=== PATIENT | male | born 1960 | race Caucasian/White ===

== ENCOUNTER → 2021-05-14 08:45 | Outpatient (CLI) | payer OTHER, SELFPAY ==
--- NOTE | ~2021-05-14 | MR_ITS ---
EXAMINATION: MR lumbar spine wo con DATE: 05/14/2021 09:20 INDICATION: Lumbar radiculopathy. TECHNIQUE: Magnetic resonance imaging (MRI) of the lumbar spine was performed without intravenous con trast. Sequences included sagittal T2-weighted FSE, sagittal T2-weighted FS FSE, sagittal T1-weighted FSE, and axial T2-weighted FSE. COMPARISON: Lumbar spine MRI 06/09/2019 FINDINGS: There is 11 degrees dextroscoliosis of lumbar spine. Vertebral body heights are normal. The re is mildly decreased disc height at L4-L5. The distal spinal cord signal intensity is normal. The c onus medullaris is at L1. The following disc levels are specifically discussed: L1-L2: The disc is bulging. There is mild bilateral facet joint osteoarthritis. There is mild right n eural foraminal stenosis. There is mild central canal stenosis. L2-L3: The disc does not extend beyond the endplate margin. There is mild bilateral facet joint osteo arthritis. There is no neural foraminal stenosis. There is no central canal stenosis. L3-L4: The disc is mildly bulging. There is mild bilateral facet joint osteoarthritis. There is mild bilateral neural foraminal stenosis. There is no central canal stenosis. L4-L5: The disc is bulging and has an annular fissure. There is severe bilateral facet joint osteoart hritis. There is mild bilateral neural foraminal stenosis. There is mild central canal stenosis. L5-S1: The disc is bulging and has an annular fissure. There is severe bilateral facet joint osteoart hritis. There is mild bilateral neural foraminal stenosis. There is mild central canal stenosis. IMPRESSION: 1. Mild lumbar spondylosis, stable from 06/09/2019. Reviewed, dictated and finalized at location A.
== END ==
PROVIDERS: PCP Internal Medicine; Visit Provider Internal Medicine
DX: M54.16 Radiculopathy, lumbar region (principal); M47.816 Spondylosis without myelopathy or radiculopathy, lumbar region
CPT/HCPCS: 72148

== ENCOUNTER 2022-07-16 17:47 | Emergency (ER) | payer OTHER, SELFPAY ==
[2022-07-16] VITALS (20 sets, daily range): BP systolic 127–163; BP diastolic 68–97; PULSE 78–88; RESP 14–16; TEMP 36.9; O2SAT 94–99
--- NOTE | ~2022-07-16 | XR_ITS ---
EXAM: XR shoulder RT min 2V DATE: 07/16/2022 18:55 HISTORY: right shoulder pain, injury TODAY, PAIN WITH ROTATION . COMPARISON: CT chest abdomen and pelvis, same date. FINDINGS: Normal mineralization. Linear ossific fragment at the superior and posterior margin of the glenoid, likely osteophyte or old fused fracture fragment. No lytic or blastic lesion. Mild degenera tive changes in the AC joint and glenohumeral joint. No erosion or periosteal change. Soft tissues wi thin normal limits. IMPRESSION: No acute osseous finding in the right shoulder. Reviewed, dictated and finalized at location K. [employer]IVING [employer]NAGER
--- NOTE | ~2022-07-16 | CT_ITS ---
EXAMINATION: CT cervical spine wo con DATE: 07/16/2022 18:10 INDICATION: DOS fell on head today. Laceration to right frontal scalp. Headache. General neck pain. TECHNIQUE: Computed tomography (CT) of the cervical spine was performed without intravenous contrast. Automated exposure control and iterative reconstruction technique were employed. Exam dose: 404.24 mGy-cm total exam DLP. COMPARISON: None FINDINGS: C1 and C2 are normally aligned and the odontoid process is intact. There is minimal anterolisthesis at C5-6. Moderately severe degenerative disc disease C6-7. There is degenerative change at the apophyseal joints, most prominent on the right C4-5. IMPRESSION: Bilateral anterolisthesis at C5-6 Moderately severe degenerative disc disease at C6-7 No fracture or dislocation Reviewed, dictated and finalized at Location A. Reviewed, dictated and finalized at location A. 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
--- NOTE | ~2022-07-16 | CT_ITS ---
EXAMINATION: CT chst ab pel thor lum w DATE: 07/16/2022 19:15 INDICATION: trauma . TECHNIQUE: Computed tomography (CT) of the chest, abdomen, and pelvis was performed with 100 mL Omnip aque-350 intravenous contrast. Automated exposure control and iterative reconstruction technique were employed. The dose-length product was 891.61 mGy-cm. COMPARISON: CT abdomen pelvis 12/12/2016. MR lumbar spine 05/14/2021. FINDINGS: CHEST: No thoracic aortic injury. No mediastinal hematoma. No pericardial effusion. Coronary artery calcifications. No acute lung injury. Sub-4 mm peripheral nodular opacities, likely represent granulomas or lymph nod es. No pleural effusion or pneumothorax. ABDOMEN/PELVIS: No solid organ injury. No evidence of bowel or mesenteric injury. Diverticulosis without evidence of diverticulitis. No free fluid or free air. No retroperitoneal hematoma. Pelvic contents are atraumatic. MUSCULOSKELETAL: No acute fracture. No fracture or traumatic malalignment of the thoracic or lumbar spine. Old mild superior endplate def ormity at T3. Severe left L4-5 facet arthropathy. IMPRESSION: No acute process detected in the chest, abdomen, or pelvis. Reviewed, dictated and finalized at location K. D ASSOCIATE
--- NOTE | ~2022-07-16 | CT_ITS ---
EXAMINATION: CT brain wo con DATE: 07/16/2022 18:08 INDICATION: Head injury TECHNIQUE: Computed tomography (CT) of the head was performed without intravenous contrast. The mA wa s adjusted according to patient size. Iterative reconstruction technique was employed. Exam dose: 68 1.00 mGy-cm total exam DLP. COMPARISON: None FINDINGS: Bilateral carotid siphon internal carotid artery calcifications. Bilateral basal ganglia calcifications. No intracranial mass lesion or hemorrhage or cerebrovascular accident, midline shift or mass effect. No subdural or epidural hematoma. No orbital mass lesion. Prominent right and mild left ethmoid air cell opacification. Mild mucoperiosteal thickening of the m axillary sinuses and right frontal sinus. No skull fracture or bone destruction. IMPRESSION: No skull fracture or acute intracranial finding Reviewed, dictated and finalized at Location A. Reviewed, dictated and finalized at location A. 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
--- NOTE | 2022-07-16 18:38 | ED.HEATRA ---
HPI - Head Injury General Chief complaint: Head Injury Stated complaint: head injury with laceration Time Seen by Provider: 07/16/22 18:12 Source: patient Mode of arrival: ambulatory Limitations: no limitations History of Present Illness HPI Narrative: This is a 62 year old male that presents to the ER for head injury sustained just prior to arrival. Reports he was at work and had a life size dollhouse/playhouse fall from a fork lift and hit him and then fell to the floor and landed on top of him. Reports his coworkers were immediately able to lift it off of him. He sustained a laceration to the right side of his scalp. Reports headache and neck pain. He also reports right shoulder pain, chest pain and back pain. Denies loss of consciousness, vision changes, abdominal pain, vomiting, numbness or weakness. Related Data Home Medications Medication Instructions Recorded Confirmed cholecalciferol (vitamin D3) 25 25 mcg PO DAILY 07/25/20 07/14/22 mcg (1,000 unit) tablet Allergies Allergy/AdvReac Type Severity Reaction Status Date / Time No Known Allergies Allergy Unknown Verified 07/16/22 18:49 Review of Systems Review of Systems: CONSTITUTIONAL: Denies fever EYES: Denies visual changes CARDIOVASCULAR: Reports chest pain RESPIRATORY: Denies dyspnea. GASTROINTESTINAL: Denies abdominal pain, nausea, vomiting, or diarrhea. GENITOURINARY: Denies hematuria. SKIN: Denies rash MUSCULOSKELETAL: Reports back pain, joint pain, and myalgia. NEUROLOGIC: Reports headache. Denies numbness, or weakness. PSYCHIATRIC: Denies anxiety or depression. All systems reviewed & are unremarkable except as noted in HPI and below PMFSH Past Medical History Medical History Anxiety Biceps tendonitis on right Chronic low back pain Encounter for preventive health examination Encounter for routine adult health examination with abnormal findings Encounter for routine adult health examination without abnormal findings Hernia of abdominal wall Hip pain Hyperlipidemia Inguinal hernia Lumbar radiculopathy Plantar fasciitis, bilateral Prostate cancer screening Right shoulder pain Routine adult health maintenance Umbilical hernia Ventral hernia Surgical History Surgical History History of colonoscopy 2014 History of knee replacement 2011, left knee Family History Family History Father Malignant neoplasm of prostate Family history of coronary artery disease Grandparent Malignant neoplasm of prostate Social History Social History Social History: drinks coffee daily Smoking status: Never smoker Alcohol intake: current Alcohol use details: social-wine 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 HEAD: Normocephalic. 2.5 cm linear laceration into subcutaneous tissue to the right scalp EYES: PERRLA and EOMI. ENT: Nares clear, no rhinorrhea or epistaxis. Mucous membranes moist. Oropharynx without tonsillar hypertrophy exudate or other lesions. Bilateral TMs pearly [place] non-bulging NECK: Supple. No adenopathy or masses. C-collar in place CHEST: Clear to auscultation. No respiratory distress. No wheezes rales or rhonchi HEART: Regular rate and rhythm. No murmur heard. Normal peripheral pulses. ABDOMEN: Soft, nontender, nondistended, normal active bowel sounds. BACK: No midline thoracic or lumbar spine tenderness EXTREMITIES: Normal range of motion. No edema or obvious deformity. Strength equal in bilateral upper and lower extremities (5/5) SKIN: Warm, dry, no rash. NEURO: No focal deficits. Alert and oriented x3. Cranial nerves II through XII grossly intact PSYCH: Normal mood and affect Course Vital Sign
[2022-07-16 18:41] LABS: Basophils Absolute Auto 0.1 K/mm3 (0.0-0.1); Basophils Percent Auto 0.8 % (0.2-1.2); Eosinophils Absolute Auto 0.3 K/mm3 (0-0.3); Eosinophils Percent Auto 3.1 % (0-4.4); Hematocrit 43.3 % (42.0-52.0); Hemoglobin 14.8 g/dL (14.0-18.0); Immature Granulocyte Absolute 0.03 K/mm3 (0.00-0.031); Immature Granulocyte Percent A 0.4 % (0-0.5); Lymphocytes Absolute Auto 1.82 K/mm3 (0.9-3.2); Lymphocytes Percent Auto 21.5 % (18.3-44.2); Mean Corpuscular HGB Conc 34.2 g/dl (32-36); Mean Corpuscular Hemoglobin 31.6 pg (26-34); Mean Corpuscular Volume 92.5 fl (80-100); Mean Platelet Volume 9.8 fl (7.4-10.4); Monocytes Absolute Auto 0.7 K/mm3 (0.1-0.6); Monocytes Percent Auto 8.5 % (2.6-8.5); Neutrophils Absolute Auto 5.6 K/mm3 (1.3-6.7); Neutrophils Percent Auto 65.7 % (45.5-73.1); Platelet Count Result 267 k/mm3 (150-375); Red Blood Count 4.68 M/mm3 (4.6-6.20); Red Cell Distribution Width 12.7 % (11.5-14.5); White Blood Count 8.5 K/mm3 (4.5-10.0)
[2022-07-16] MEDS: TETANUS,DIPHTHERIA,AC PERTUSSIS ADULT (0.5 ML) BOOSTRIX IM (18:50)
[2022-07-16 18:52] LABS: Partial Thromboplastin Time 25.8 SECONDS (22.3-36.8)
[2022-07-16] MEDS: ONDANSETRON INJ 4 MG/2 ML VIAL IV PUSH (18:53)
[2022-07-16] MEDS: MORPHINE SULFATE (*CRX) 4 MG/ML INJ IV PUSH (18:53)
[2022-07-16 18:55] LABS: Alanine Aminotransferase 46 U/L (6-50); Albumin Level 4.8 g/dL (3.5-5.1); Alkaline Phosphatase 76 U/L (38-126); Anion Gap 14 mmol/L (8-16); Aspartate Amino Transferase 39 U/L (17-59); Bilirubin,Total 0.6 mg/dL (0.2-1.3); Blood Urea Nitrogen 15 mg/dL (9-20); Calcium 8.9 mg/dL (8.4-10.2); Carbon Dioxide 22 mmol/L (22-30); Chloride 103 mmol/L (98-107); Estimated CRCL calculation 79 ml/min; Estimated Glomerular Filt Rate > 60; Glucose 90 mg/dL (65-110); Potassium 3.8 mmol/L (3.4-5.0); Sodium 139 mmol/L (137-145)
== END 2022-07-16 21:31 | disposition home or self-care (01) ==
PROVIDERS: Physician Assistant; Emergency Provider Emergency Medicine; PCP Internal Medicine
DX: S01.01XA Laceration without foreign body of scalp, initial encounter (principal); Z23 Encounter for immunization; E78.5 Hyperlipidemia, unspecified; F41.9 Anxiety disorder, unspecified; Z96.652 Presence of left artificial knee joint; T79.7XXA Traumatic subcutaneous emphysema, initial encounter; M50.323 Other cervical disc degeneration at C6-C7 level; W20.8XXA Other cause of strike by thrown, projected or falling object, initial encounter
CPT/HCPCS: 12001; 36415; 70450; 71260; 72125; 72129; 72132; 73030; 74177; 80053; 85025; 85610; 85730; 90471; 90715; 96365; 96375; 99284; J0131; J2270; J2405; L0140; Q9967

== ENCOUNTER → 2022-08-28 15:17 | Outpatient (CLI) | payer OTHER, SELFPAY ==
--- NOTE | ~2022-08-28 | MR_ITS ---
EXAMINATION: MR lumbar spine wo con DATE: 08/28/2022 15:55 INDICATION: Lumbar radicular pain TECHNIQUE: Magnetic resonance imaging (MRI) of the lumbar spine was performed without intravenous con trast. Sequences included sagittal T2-weighted FSE, sagittal T2-weighted FS FSE, sagittal T1-weighted FSE, and axial T2-weighted FSE. COMPARISON: 05/24/2021 FINDINGS: 13 degrees lumbar dextroscoliosis. Sagittal alignment is normal. Vertebral body heights are normal. Normal marrow signal. Mild disc desiccation at L1-L2 through L5-S1. Mild disc height loss at L1-L2 an d L4-L5. Mild fibrofatty and fibrovascular degenerative endplate changes along the anterior superior endplate of L2. Annular fissures at L4-L5 and L5-S1. The conus medullaris terminates at L1-L2. There is normal signal in the caudal spinal cord. Paravertebral soft tissues are unremarkable. The followin g disc levels are specifically discussed: L1-L2: Disc is mildly bulging. There is mild left and mild to moderate right facet joint osteoarthrit is. There is mild bilateral neural foraminal stenosis. There is mild central canal stenosis. L2-L3: Disc is minimally bulging. There is no facet joint osteoarthritis. There is no neural foramina l stenosis. There is no central canal stenosis. L3-L4: Disc is mildly bulging, predominantly at the foraminal zones. There is mild to moderate bilate ral facet joint osteoarthritis. There is mild bilateral neural foraminal stenosis. There is no centra l canal stenosis. L4-L5: Disc is bulging with annular fissure. There is severe bilateral facet joint osteoarthritis. Th ere is mild to moderate bilateral neural foraminal stenosis. There is mild central canal stenosis. L5-S1: Disc is bulging with annular fissure. There is severe bilateral facet joint osteoarthritis. Th ere is mild bilateral neural foraminal stenosis. There is mild central canal stenosis. IMPRESSION: 1. No significant interval change in mild lumbar spondylosis. Reviewed, dictated and finalized at location B. [employer]
== END ==
PROVIDERS: PCP Nurse Practitioner Family; Visit Provider Nurse Practitioner Family
DX: M54.16 Radiculopathy, lumbar region (principal)
CPT/HCPCS: 72148

== ENCOUNTER 2022-09-15 15:31 | Outpatient (CLI) | payer OTHER, SELFPAY | END 2022-09-15 15:32 | disposition home or self-care (01) | PROVIDERS: PCP Internal Medicine; Visit Provider Surgery | DX: K40.20 Bilateral inguinal hernia, without obstruction or gangrene, not specified as recurrent (principal); Z01.818 Encounter for other preprocedural examination | CPT/HCPCS: 36415; 86850; 86900; 86901 ==

== ENCOUNTER 2022-09-18 01:00 | Day surgery (SDC) | payer OTHER, SELFPAY ==
[2022-09-10 11:10] VITALS: BMI 26.6
--- NOTE | 2022-09-10 11:16 | PC.NURSE ---
Report to the Outpatient Waiting Room, entrance under the green pavilion located off [facility], at time 10:00 on date 09/18/22. Planned Procedure Time: 12:00. Time changes happen often and if your time is changed the preop area will call you the afternoon before. - You and your visitor will be asked to self-screen and do not enter if you have any COVID symptoms. - Only one visitor is requested with a max of two and NO children visitors are allowed at this time. - The patient visitor may be requested to leave or wait in car when not with patient due to distancing restrictions. - A mask is REQUIRED within the hospital. Patients may have clear liquids (water, carbonated beverages, clear teas, apple juice) until 3 hours prior to surgery (9:00) with a maximum of 20 ounces. - No food from midnight until time of surgery Take the following medications with a SIP of water the morning of surgery: INHALERS, BUSPIRONE, VALACYCLOVIR - IF NEEDED Medications to discontinue per physician: VITAMINS Date to take last dose: 09/14/22 Please no make-up, nail filipino, hairspray, perfume, deodorant, or body powder the day of surgery. No jewelry (including any body piercings) or valuables the day of surgery, leave them at home. Please take a shower or bath the night before, or the morning of, surgery with an antibacterial soap (HIBICLENS). Wear comfortable, loose fitting clothing. - Jewelry must be removed prior to entering the operating room. Rings and piercings that are not removed may be cut off. - The hospital will not accept responsibility for valuables. - Please leave all valuables, including medications, at home the day of surgery. If you are going home after surgery, a licensed livery car driver must drive you home. - NO public transportation without another adult if you receive anesthesia. - We recommend that an adult stay with you for 24 hours following discharge. - We also recommend that you do not drive, make important decision, drink alcoholic beverages, or take any drugs that were not prescribed by your health care provider for at least 24 hours after your discharge time. Follow any additional instructions given to you from your surgeon. If you or anyone in your household have experienced Covid symptoms in the past week, please notify your surgeon or the nurse liaison at the phone number below for possible testing. Telephone instructions given to LAINEY VARGAS and asked if any additional questions and then verbalized understanding. Patient advised to call surgeon office or pre surgery nurse liaison [phone] if any additional questions.
[2022-09-18] VITALS (10 sets, daily range): BP systolic 101–153; BP diastolic 62–85; PULSE 63–93; RESP 12–18; TEMP 36.6–37.2; O2SAT 92–98
--- NOTE | 2022-09-18 10:20 | PM.IMHP ---
H&P: HPI History of Present Illness Date/Time: 09/18/22 10:20 Chief Complaint: bilateral inguinal hernia Narrative: Mr. Gudino presents today for re-evaluation of bilateral inguinal hernias and an umbilical hernia.? He was originally evaluated in 06/2020 where surgical repair was recommended and scheduled to be performed in 08/2020, but due to concerns over the Covid pandemic, he cancelled surgery and deferred rescheduling.? He returns now for recheck of the hernia. Patient states he has been having increased discomfort in bilateral groin areas with physical activity. He denies umbilical bulging. He states occasionally it feels like a burning sensation. He states he is having normal BM's. Review of Systems Review of Systems: All systems reviewed & are unremarkable except as noted in HPI and below PMFSH Past Medical History Medical History Anxiety Biceps tendon rupture Biceps tendonitis on right Chronic low back pain Encounter for preventive health examination Encounter for routine adult health examination with abnormal findings Encounter for routine adult health examination without abnormal findings Hernia of abdominal wall Hip pain Hyperlipidemia Inguinal hernia Lumbar radiculopathy Plantar fasciitis, bilateral Prostate cancer screening Right shoulder pain Routine adult health maintenance Umbilical hernia Ventral hernia Surgical History Surgical History History of colonoscopy 2014 History of knee replacement 2011, left knee Family History Family History Father Malignant neoplasm of prostate Family history of coronary artery disease Grandparent Malignant neoplasm of prostate Social History Social History Social History: drinks coffee daily Smoking status: Never smoker Alcohol intake: current Drinks per week: 4 Alcohol use details: social-wine Substance use: never Substance use type: does not use Living arrangements: with family 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 Spiritual care concerns: No Meds Home Medications and Allergies Home Medications Medication Instructions Recorded Confirmed Type albuterol sulfate 90 mcg/actuation 2 inh inhalation Q4-6H PRN 08/13/21 09/18/22 Rx aerosol inhaler shortness of breath or wheezing #18 grams valacyclovir 1 gram tablet See Rx Instructions .Route 11/28/21 09/18/22 Rx .COMPLEX #21 tabs fluticasone propionate 50 See Rx Instructions .Route 01/16/22 09/18/22 Rx mcg/actuation nasal .COMPLEX #48 grams spray,suspension fluticasone 250 mcg-salmeterol 50 1 inh inhalation BID #90 ea 02/17/22 09/18/22 Rx mcg/dose blistr powdr for inhalation buspirone 5 mg tablet See Rx Instructions .Route 04/30/22 09/18/22 Rx .COMPLEX #180 tabs cholecalciferol (vitamin D3) 1,250 See Rx Instructions .Route 07/24/22 09/18/22 Rx mcg (50,000 unit) capsule .COMPLEX #10 caps cholecalciferol (vitamin D3) 50 50 mcg PO DAILY 07/24/22 09/18/22 History mcg (2,000 unit) capsule Allergies Allergy/AdvReac Type Severity Reaction Status Date / Time No Known Allergies Allergy Unknown Verified 09/18/22 09:56 Exam Const: General: cooperative, comfortable and no acute distress Resp: Auscultation: clear to auscultation bilaterally Cardio: Rate: regular rate Rhythm: regular rhythm GI: Inspection: normal to inspection GI Palp: Yes abdominal tenderness and Yes Hernia present Percussion: Yes normal to percussion Other: bilateral inguinal hernia Assessment and Plan Assessment and plan (1) Bilateral inguinal hernia: Qualifiers: Obstruction and gangrene presence: without obstruction or gangrene Recurrence: non-recurrent Qualified Code(s): K40.20 - Bilateral ingu
[2022-09-18] MEDS: ACETAMINOPHEN 500 MG TABLET 1000 MG PO (10:25)
[2022-09-18] MEDS: LACTATED RINGERS 1,000 ML 30 ML IV CONT ×2 (10:30→14:01)
[2022-09-18] MEDS: KETOROLAC 15 MG/ML VIAL (*BKC) IV PUSH (10:33)
--- NOTE | 2022-09-18 11:19 | WPDANESEPPF ---
Anes - Initial Pre Proc Eval Procedure: Operation Date: 09/18/22 12:00 Proposed Procedures p Robotic Assisted Bilateral Inguinal Hernia Repair with Mesh - Damaris Talbert MD Date/Time: 09/18/22 11:19 Surgeon: Damaris Talbert MD Pre Op Diagnosis: bilateral inguinal hernia Patient Data Age: 62 Gender: M Height: 1.73 m Weight: 79.4 kg Allergies Allergy/AdvReac Type Severity Reaction Status Date / Time No Known Allergies Allergy Unknown Verified 09/18/22 09:56 Home Medications Medication Instructions Recorded Confirmed Type albuterol sulfate 90 mcg/actuation 2 inh inhalation Q4-6H PRN 08/13/21 09/18/22 Rx aerosol inhaler shortness of breath or wheezing #18 grams valacyclovir 1 gram tablet See Rx Instructions .Route 11/28/21 09/18/22 Rx .COMPLEX #21 tabs fluticasone propionate 50 See Rx Instructions .Route 01/16/22 09/18/22 Rx mcg/actuation nasal .COMPLEX #48 grams spray,suspension fluticasone 250 mcg-salmeterol 50 1 inh inhalation BID #90 ea 02/17/22 09/18/22 Rx mcg/dose blistr powdr for inhalation buspirone 5 mg tablet See Rx Instructions .Route 04/30/22 09/18/22 Rx .COMPLEX #180 tabs cholecalciferol (vitamin D3) 1,250 See Rx Instructions .Route 07/24/22 09/18/22 Rx mcg (50,000 unit) capsule .COMPLEX #10 caps cholecalciferol (vitamin D3) 50 50 mcg PO DAILY 07/24/22 09/18/22 History mcg (2,000 unit) capsule Patient hx anesthesia problems: none Family hx anesthesia problems: none Results Review: All pre-operative results and documents have been reviewed as part of the pre-operative evaluation. [facility] Past Medical History Medical History Anxiety Biceps tendon rupture Biceps tendonitis on right Chronic low back pain Encounter for preventive health examination Encounter for routine adult health examination with abnormal findings Encounter for routine adult health examination without abnormal findings Hernia of abdominal wall Hip pain Hyperlipidemia Inguinal hernia Lumbar radiculopathy Plantar fasciitis, bilateral Prostate cancer screening Right shoulder pain Routine adult health maintenance Umbilical hernia Ventral hernia Surgical History Surgical History History of colonoscopy 2014 History of knee replacement 2012, left knee Family History Family History Father Malignant neoplasm of prostate Family history of coronary artery disease Grandparent Malignant neoplasm of prostate Social History Social History Social History: drinks coffee daily Smoking status: Never smoker Alcohol intake: current Drinks per week: 4 Alcohol use details: social-wine Substance use: never Substance use type: does not use Living arrangements: with family 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 Informed Consent: The patient's anesthetic plan and its attendant risks and benefits were discussed with the patient/family/POA. Questions were solicited and answers provided to the satisfaction of the patient/family/POA.
--- NOTE | 2022-09-18 11:40 | WPDHPUPDATE1 ---
History and Physical Update Update Date/Time: 09/18/22 11:40 History and Physical has been reviewed, including an updated exam of the patient. There are NO changes in the patient's condition. Risks, benefits, and alternatives have been discussed and questions answered. Patient agrees to proceed with procedure. robotic assisted bilateral inguinal hernia repair c mesh
[2022-09-18] MEDS: ceFAZolin 2 GM/D5W 50 ML 2 GM/50 ML BAG IVPB (11:52)
[2022-09-18] MEDS: BUPIVACAINE/EPINEPHRINE 0.5% 30 ML VIAL INFILTRATE (12:23)
--- NOTE | 2022-09-18 13:54 | W.PM.PROC2 ---
Procedure Note - Detailed Date of Procedure 09/18/22 Pre-op Diagnosis bilateral inguinal hernia Post-op Diagnosis Same Procedure Performed robotic assisted bilateral inguinal hernia repair with mesh, lysis of adhesions approximately 30 minutes Surgeon Damaris Talbert MD Anesthesia General Indications Pt is a 62 y/o M presenting c few mo h/o bulging, discomfort in bilateral groin. Workup significant for bilateral inguinal hernia. Findings bilateral indirect hernia Description of Procedure Patient was brought into the operating room and placed in the supine position. After adequate induction of general anesthesia, the patient was prepped and draped in normal sterile fashion. A time-out was then done to verify the patient's identity, as well as the procedure being performed. I began by making a 8 mm incision in the supraumbilical region, a Veress needle was then placed into the peritoneal cavity. CO2 gas was then insufflated and after adequate pneumoperitoneum was achieved, the Veress needle was removed. I then placed an 8 mm trocar through this incision. I then placed the endoscope through this trocar site and under direct visualization placed a further 8 mm port in the right mid abdomen. There was noted to be dense abdominal adhesions to the anterior abdominal wall in the midline and left abdomen. I placed a further 5 mm port in the right upper abdomen to assist with lysis of adhesions. A lysis of adhesions was done with the scissors both sharply and with the Bovie cautery. This adhesiolysis took approximately 30 minutes. Once completed, I was able to place a further 8 mm port in the left mid abdomen. The [employer] robot was then docked to the 3 trocar sites. I then scrubbed out and went to the robotic console. Upon examining the pelvis, it was noted that the patient had a moderate sized right inguinal hernia. The left side was examined and a small hernia defect was noted. I began by making a preperitoneal flap approximately 6 cm superior to the right sided defect. This flap was carried medially past the umbilical ligaments and laterally to the transversalis. It then began dissection of my medial compartment taking this down to the pubic tubercle. I then began the lateral dissection taking this down to the transversalis fascia. Once these compartments were achieved, I began dissection around the cord structures. A moderate sized indirect hernia was noted at this point. Using careful dissection, was able to reduce indirect hernia sac off the cord structures. Once this was adequately done, I went ahead and placed a large piece of 3D Max mesh into the abdominal cavity. The mesh was carefully positioned, centering the center of the mesh over the indirect defect. Once this was done, I was satisfied with our repair. Using 3-0 Vicryl sutures, I tacked the mesh medially to Silvio's ligament. Two lateral sutures were placed from the mesh to the transversalis fascia. I then began on the left side by making a preperitoneal flap approximately 6 cm superior to the left sided defect. This flap was carried medially past the umbilical ligaments and laterally to the transversalis. It then began dissection of my medial compartment taking this down to the pubic tubercle. I then began the lateral dissection taking this down to the transversalis fascia. Once these compartments were achieved, I began dissection around the cord structures. A small indirect hernia was noted at this point. Using careful dissection, was able to reduce indirect hernia sac off the cord structures. Once this was adequately done, I went ahead and placed a large piece of 3D Max mesh into the abdominal cavity. The mesh was carefully positioned, centering the center of the mesh over the indirect defect. Once this was done, was very satisfied with our repair. Using 3-0 Vicryl sutures, I tacked the mesh medially to Silvio's ligament. Two lateral sutures were placed from the mesh to the trans
[2022-09-18] MEDS: fentaNYL CITRATE INJ (*CRX) 100 MCG/2 ML VIAL 25 MCG IV PUSH ×8 (14:10→15:23)
[2022-09-18] MEDS: oxyCODONE HCL (*CRX) 5 MG TAB IR PO (15:28)
== END 2022-09-18 17:02 | disposition home or self-care (01) ==
PROVIDERS: PCP Internal Medicine; Visit Provider Surgery
PROC: 8E0Y4CZ Robotic Assisted Procedure of Lower Extremity, Percutaneous Endoscopic Approach (ICD-10-PCS; CPT 49650; principal; 2022-09-18 12:00)
DX: K40.20 Bilateral inguinal hernia, without obstruction or gangrene, not specified as recurrent (principal); F41.9 Anxiety disorder, unspecified; Z79.51 Long term (current) use of inhaled steroids
CPT/HCPCS: 49650; S2900; 36415; 86850; 86900; 86901; A9270; C1781; J0360; J0690; J1100; J1170; J1885; J2250; J2405; J2704; J2710; J3010; J7030; J7120

== ENCOUNTER → 2023-09-02 08:21 | Outpatient (CLI) | payer OTHER, SELFPAY ==
--- NOTE | ~2023-09-02 | XR_ITS ---
EXAMINATION: XR chest 2V 09/02/2023 08:45 INDICATION: Cough. Recent Covid infection. PROCEDURE: 2 view chest COMPARISON: No prior studies for comparison. FINDINGS: The lungs are clear. The cardiomediastinal silhouette is within normal limits. There are no pleural effusions. There is no pneumothorax suspected. IMPRESSION: 1: NO ACUTE CARDIOPULMONARY DISEASE. Reviewed, dictated and finalized at location B. 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
== END ==
PROVIDERS: PCP Internal Medicine; Visit Provider Internal Medicine
DX: R05.9 Cough, unspecified (principal)
CPT/HCPCS: 71046

== ENCOUNTER 2024-04-19 09:12 | Day surgery (SDC) | payer OTHER, SELFPAY ==
[2024-04-04 09:34] VITALS: BMI 27.3
[2024-04-12 13:35] VITALS: BMI 27.4
--- NOTE | 2024-04-18 13:10 | PM.HPGS ---
History of Present Illness History of Present Illness Consent: Risks, benefits, and alternatives have been discussed and questions answered. Patient agrees to proceed with procedure. Chief complaint: Screening for neoplasm of colon Narrative: You Gudino is a 64 year old male who is referred for colon cancer screening. Review of Systems Review of Systems: All systems reviewed & are unremarkable except as noted in HPI and below PMFSH Past Medical History Medical History Abnormal finding of blood chemistry Acute bronchitis Anxiety Biceps tendon rupture Biceps tendonitis on right Chronic left hip pain Chronic low back pain Colon cancer screening Ear itch Encounter for preventive health examination Encounter for routine adult health examination with abnormal findings Encounter for routine adult health examination without abnormal findings Hernia of abdominal wall Hip pain Hyperlipidemia Inguinal hernia Lumbar radiculopathy Plantar fasciitis, bilateral Prostate cancer screening Right shoulder pain Routine adult health maintenance Seasonal allergies Umbilical hernia Ventral hernia Surgical History Surgical History H/O bilateral inguinal hernia repair 09/18/22 robotic assisted bilateral inguinal hernia repair with mesh, lysis of adhesions approximately 30 minutes History of colonoscopy 2014 History of knee replacement 2012, left knee Family History Family History Father Malignant neoplasm of prostate Family history of coronary artery disease Grandparent Malignant neoplasm of prostate Social History Social History Social History: drinks coffee daily Smoking status: Never smoker Second hand tobacco smoke exposure: No Alcohol intake: current Drinks per week: 4 Alcohol use details: social-wine Substance use: never Substance use type: does not use Lack of Transportation: No Lack of Food: Never True Current Housing: I Have Housing Concerned About Future Housing: No Difficulty Paying Gas/Electric Bills: No Difficulty Paying for Meds: No Currently Unemployed: No Education: Bachelor's Degree Living arrangements: with family Occupation/Education: occupation 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 100 mcg-umeclid 1 inh inhalation DAILY #60 ea 04/07/24 04/19/24 Rx 62.5 mcg-vilant 25 mcg inhalat.powder (Trelegy Ellipta) albuterol sulfate 90 mcg/actuation 2 puff inhalation Q4-6H PRN 04/19/24 04/19/24 History aerosol inhaler Shortness Of Breath Or Wheezing cetirizine 10 mg tablet (Zyrtec) 10 mg PO DAILY PRN Allergy Symptoms 04/19/24 04/19/24 History fluticasone propionate 50 2 spray intranasal DAILY 04/19/24 04/19/24 History mcg/actuation nasal spray,suspension Allergies Allergy/AdvReac Type Severity Reaction Status Date / Time No Known Allergies Allergy Unknown Verified 04/19/24 09:37 Exam Const: General: alert Orientation/consciousness: patient oriented x3 Resp: Auscultation: clear to auscultation bilaterally Cardio: Rhythm: regular rhythm GI: GI Palp: Yes Soft to palpation and No Tenderness to palpation present (GI) Neuro: General: patient oriented x3 Assessment and Plan Assessment and plan (1) Col
[2024-04-19 09:39] VITALS: BP 164/96; PULSE 63; RESP 16; TEMP 36.9; O2SAT 98
[2024-04-19] MEDS: LACTATED RINGERS 1,000 ML 150 ML IV CONT (09:43)
--- NOTE | 2024-04-19 10:31 | WPDANESEPPF ---
Anes - Initial Pre Proc Eval Procedure: Operation Date: 04/19/24 11:00 Proposed Procedures p Screening Colonoscopy - Wilfredo Segura MD Date/Time: 04/19/24 10:31 Surgeon: Wilfredo Segura MD Pre Op Diagnosis: Screening for neoplasm of colon Patient Data Age: 64 Gender: M Height: 1.7 m Weight: 79.05 kg Last Vital Signs Temp 36.9 C 04/19/24 09:39 Pulse 63 04/19/24 09:39 Resp 16 04/19/24 09:39 BP 164/96 H 04/19/24 09:39 Pulse Ox 98 04/19/24 09:39 O2 Del Method Room Air 04/19/24 09:39 Allergies Allergy/AdvReac Type Severity Reaction Status Date / Time No Known Allergies Allergy Unknown Verified 04/19/24 09:37 Home Medications Medication Instructions Recorded Confirmed Type cholecalciferol (vitamin D3) 50 50 mcg PO DAILY 07/24/22 04/19/24 History mcg (2,000 unit) capsule valacyclovir 1 gram tablet See Rx Instructions .Route 01/23/23 04/19/24 Rx .COMPLEX PRN cold sores #21 tabs buspirone 10 mg tablet 10 mg PO TID #90 tabs 04/04/24 04/19/24 Rx fluticasone fur. 100 mcg-umeclid 1 inh inhalation DAILY #60 ea 04/07/24 04/19/24 Rx 62.5 mcg-vilant 25 mcg inhalat.powder (Trelegy Ellipta) albuterol sulfate 90 mcg/actuation 2 puff inhalation Q4-6H PRN 04/19/24 04/19/24 History aerosol inhaler Shortness Of Breath Or Wheezing cetirizine 10 mg tablet (Zyrtec) 10 mg PO DAILY PRN Allergy Symptoms 04/19/24 04/19/24 History fluticasone propionate 50 2 spray intranasal DAILY 04/19/24 04/19/24 History mcg/actuation nasal spray,suspension Patient hx anesthesia problems: none Family hx anesthesia problems: none Results Review: All pre-operative results and documents have been reviewed as part of the pre-operative evaluation. [facility] Past Medical History Medical History Abnormal finding of blood chemistry Acute bronchitis Anxiety Biceps tendon rupture Biceps tendonitis on right Chronic left hip pain Chronic low back pain Colon cancer screening Ear itch Encounter for preventive health examination Encounter for routine adult health examination with abnormal findings Encounter for routine adult health examination without abnormal findings Hernia of abdominal wall Hip pain Hyperlipidemia Inguinal hernia Lumbar radiculopathy Plantar fasciitis, bilateral Prostate cancer screening Right shoulder pain Routine adult health maintenance Seasonal allergies Umbilical hernia Ventral hernia Surgical History Surgical History H/O bilateral inguinal hernia repair 09/18/22 robotic assisted bilateral inguinal hernia repair with mesh, lysis of adhesions approximately 30 minutes History of colonoscopy 2015 History of knee replacement 2011, left knee Family History Family History Father Malignant neoplasm of prostate Family history of coronary artery disease Grandparent Malignant neoplasm of prostate Social History Social History Social History: drinks coffee daily Smoking status: Never smoker Second hand tobacco smoke exposure: No Alcohol intake: current Drinks per week: 4 Alcohol use details: social-wine Substance use: never Substance use type: does not use Lack of Transportation: No Lack of Food: Never True Current Housing: I Have Housing Concerned About Future Housing: No Difficulty Paying Gas/Electric Bills: No Difficulty Paying for Meds: No Currently Unemployed: No Education: Bachelor's Degree Living arrangements: with family Occupation/Education: occupation 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
[2024-04-19 11:30] VITALS: BP 122/82; PULSE 61; RESP 14; O2SAT 97
--- NOTE | 2024-04-19 11:39 | WPDANESPN ---
Anes - Prog Note Post-Op Date/Time: 04/19/24 11:39 Cardiovascular status: normal Respiratory status: normal Airway patency: baseline Mental status: baseline Post-Op hydration status: normal Vital Signs: Last Vital Signs Temp 36.9 C 04/19/24 09:39 Pulse 61 04/19/24 11:30 Resp 14 04/19/24 11:30 BP 122/82 04/19/24 11:30 Pulse Ox 97 04/19/24 11:30 O2 Del Method Room Air 04/19/24 11:30 Pain Score (VAS): 0/10 I/O: Intake & Output 04/18/24 04/19/24 04/19/24 23:59 07:59 15:59 Intake Total 300 Balance 300 Patient Feedback: Patient satisfied with anesthetic care.
[2024-04-19 11:40] VITALS: BP 114/74; PULSE 58; RESP 14; O2SAT 97
[2024-04-19 11:50] VITALS: BP 120/82; PULSE 58; RESP 18; O2SAT 100
== END 2024-04-19 11:55 | disposition home or self-care (01) ==
PROVIDERS: PCP Internal Medicine; Visit Provider Internal Medicine Gastroenterology
PROC: 0DJD8ZZ Inspection of Lower Intestinal Tract, Via Natural or Artificial Opening Endoscopic (ICD-10-PCS; CPT 45378; principal; 2024-04-19 11:00)
DX: Z12.11 Encounter for screening for malignant neoplasm of colon (principal); K57.30 Diverticulosis of large intestine without perforation or abscess without bleeding
CPT/HCPCS: 45378

== ENCOUNTER 2024-07-12 07:24 | Inpatient (IN) | payer OTHER, SELFPAY ==
[2024-07-12] VITALS (15 sets, daily range): BP systolic 117–148; BP diastolic 69–92; PULSE 62–83; RESP 12–18; TEMP 36–37.2; O2SAT 94–100; BMI 28.3
--- NOTE | ~2024-07-12 | XR_ITS ---
XR foot LT min 3V Ordering provider: Deneen Vigil History: . puncture wound nail on the bottom of foot by big toe . Comparison: None. FINDINGS: BONES: No definite acute fracture or dislocation. Fracture in the area of the base of the distal phal anx of the big toe which may be acute or chronic. Clinical correlation for tenderness in the area adv ised. JOINT SPACES: Normal. No tarsal coalition. SOFT TISSUES: Normal. 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 Clinical correlation for tenderness in the area advised. Reviewed, dictated and finalized at location A. TOP SUPPORT TECHNICIAN IMPRESSION: fracture in the area of the base of the distal phalanx of the left big toe whic h may be acute or chronic. Clinical correlation for tenderness in the area advi sed.
--- NOTE | ~2024-07-12 | CT_ITS ---
EXAMINATION: CT foot LT wo con DATE: 07/12/2024 13:02 INDICATION: Puncture wound of left great toe. TECHNIQUE: Computed tomography (CT) of the left foot was performed without intravenous contrast. Auto mated exposure control and iterative reconstruction technique were employed. The dose-length product was 461.03 mGy-cm. COMPARISON: Left foot radiographs 07/12/2024 FINDINGS: Alignment is normal. No acute fracture. There is an old fracture deformity of medial base o f first distal phalanx. There is mild osteoarthritis of first metatarsophalangeal joint. IMPRESSION: 1. No radiopaque foreign body or acute fracture. Reviewed, dictated and finalized at location A. CTOR OF SUSTAINABILITY
--- NOTE | 2024-07-12 07:54 | ED.WOUNDLAC ---
HPI - Wound/Laceration General Chief Complaint: Wound/Laceration Stated Complaint: puncture wound to great toe Time Seen by Provider: 07/12/24 07:38 History of Present Illness HPI narrative: patient accidentally stepped on a nail through issue yesterday, within hours and noticed severe redness and pain spreading from the bottom of his left great toe up to his thigh. Severe pain, no fevers or chills. tetanus up-to-date Related Data Home Medications Medication Instructions Recorded Confirmed albuterol sulfate 90 mcg/actuation 2 puff inhalation Q4-6H PRN 04/19/24 07/12/24 aerosol inhaler Shortness Of Breath Or Wheezing cetirizine 10 mg tablet (Zyrtec) 10 mg PO DAILY PRN Allergy Symptoms 04/19/24 07/12/24 buspirone 10 mg tablet 10 mg PO DAILY 07/12/24 07/12/24 Allergies Allergy/AdvReac Type Severity Reaction Status Date / Time No Known Allergies Allergy Unknown Verified 07/12/24 07:35 Review of Systems Review of Systems: All systems reviewed & are unremarkable except as noted in HPI and below PMFSH Past Medical History Medical History Abnormal finding of blood chemistry Acute bronchitis Anxiety Biceps tendon rupture Biceps tendonitis on right Chronic left hip pain Chronic low back pain Colon cancer screening Ear itch Encounter for preventive health examination Encounter for routine adult health examination with abnormal findings Encounter for routine adult health examination without abnormal findings Hernia of abdominal wall Hip pain Hyperlipidemia Inguinal hernia Lumbar radiculopathy Plantar fasciitis, bilateral Prostate cancer screening Right shoulder pain Routine adult health maintenance Seasonal allergies Umbilical hernia Ventral hernia Surgical History Surgical History H/O bilateral inguinal hernia repair 09/18/22 robotic assisted bilateral inguinal hernia repair with mesh, lysis of adhesions approximately 30 minutes History of colonoscopy 2014 History of knee replacement 2011, left knee Family History Family History Father Malignant neoplasm of prostate Family history of coronary artery disease Grandparent Malignant neoplasm of prostate Social History Social History Social History: drinks coffee daily Smoking status: Never smoker Second hand tobacco smoke exposure: No Alcohol intake: current Drinks per week: 4 Alcohol use details: social-wine Substance use: never Substance use type: does not use Lack of Transportation: No Lack of Food: Never True Current Housing: I Have Housing Concerned About Future Housing: No Difficulty Paying Gas/Electric Bills: No Difficulty Paying for Meds: No Currently Unemployed: No Education: Bachelor's Degree Living arrangements: with family Occupation/Education: occupation 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 EYES: EOMI, conjunctiva normal ENT: Hearing grossly intact LUNGS: Nonlabored breathing. HEART: [Regular rate and rhythm] ABD: [Soft], [nontender to palpation] EXT: Normal range of motion SKIN: swollen painful left great toe with puncture jodie below, with redness streaking up to a patch on his left inner upper thigh NEURO: [Alert and oriented x 3. No gross focal sensory or strength deficits.] PSYCH: Normal affect Course Vital Signs Vital signs: Vital Signs Temperature 97.9 F 07/12/24 07:32 Pulse Rate 83 07/12/24 07:32 Respiratory Rate 16 07/12/24 07:32 Blood Pressure 148/89 H 07/12/24 07:32 Pulse Oximetry 97 07/12/24 07:32 Oxygen Delivery Room Air 07/12/24 07:32 Temperature 99.0 F 07/12/24 09:03 Pulse Rate 77 07/12/24 09:03 Respiratory Rate 18 07/12/24 09:03 Blood Pressure 132/79 07/12/24 09:03 Pulse Oximetry 94 07/12/24 09:03 Oxygen Delivery Room Air 07/12/24 07:32 MDM - Wound/Laceration MDM Narrative Medical decision making narrative: patient presents after stepping on a guillermo nail, that went through his shoe yesterday. Tetanus up-to-date, he is having significant pain, there is redness and swelling from his big toe all the way up to his groin. I do feel given the rapid onset and streaking that he may benefit from IV antibiotics. Will also cover for Pseudomonas. Patient agreeable to this plan. Discussed with hospitalist for admission. Lab Data 07/12/24 07:50 07/12/24 07:50 Labs: Lab Results 07/12/24 Range/Units 07:50 WBC 12.4 H (4.5-10.0) K/mm3 RBC 4.63 (4.6-6.20) M/mm3 Hgb 15.1 (14.0-18.0) g/dL Hct 43.4 (42.0-52.0) % MCV 93.7 (80-100) fl MCH 32.6 (26-34) pg MCHC 34.8 (32-36) g/dl RDW 12.3 (11.5-14.5) % Plt Count 275 (150-375) k/mm3 MPV 10.8 H (7.4-10.4) fl Immature Gran % (Auto) 0.2 (0-0.5) % Neut % (Auto) 79.0 H (45.5-73.1) % Lymph % (Auto) 10.8 L (18.3-44.2) % Hamilton % (Auto) 7.6 (2.6-8.5) % Eos % (Auto) 1.9 (0-4.4) % Baso % (Auto) 0.5 (0.2-1.2) % Lymph # (Auto) 1.34 (0.9-3.2) K/mm3 Hamilton # (Auto) 0.9 H (0.1-0.6) K/mm3 Eos # (Auto) 0.2 (0-0.3) K/mm3 Baso # (Auto) 0.1 (0.0-0.1) K/mm3 Abs Immat Gran (auto) 0.03 (0.00-0.031) K/mm3 Absolute Neuts (auto) 9.8 H (1.3-6.7) K/mm3 Absolute Nucleated RBC 0.000 (0.0-0.012) K/mm3 Nucleated RBC % 0.0 (0.0-0.2) % ESR 14 (0-20) mm/hr Sodium 136 L (137-145) mmol/L Potassium 4.2 (3.4-5.0) mmol/L Chloride 103 (98-107) mmol/L Carbon Dioxide 21 L (22-30) mmol/L Anion Gap 12 (4-12) mmol/L BUN 14 (9-20) mg/dL Creatinine 0.60 L (0.7-1.3) mg/dL Estim Creat Clear Calc 100 ml/min Estimated GFR > 60 (59 - ) Glucose 105 (65-110) mg/dL Lactic Acid 1.3 (0.7-2.0) mmol/L Calcium 9.5 (8.4-10.2) mg/dL Total Bilirubin 1.3 (0.2-1.3) mg/dL AST 29 (17-59) U/L ALT 33 (6-50) U/L Alkaline Phosphatase 74 (38-126) U/L C-Reactive Protein 4.5 H (<1.0) mg/dL Total Protein 8.0 (6.3-8.2) g/dL Albumin 4.7 (3.5-5.1) g/dL Procalcitonin 0.1 ng/mL Discharge Plan Discharge Clinical Impression: Puncture wound of foot, Cellulitis Patient Disposition: Still a Patient Condition: Stable Prescriptions: No Action buspirone 10 mg tablet 10 mg PO DAILY Rx Instructions: Please D/C the Buspirone 5mg. Thank you valacyclovir 1 gram tablet See Rx Instructions .ROUTE .COMPLEX PRN (Reason: cold sores) Qty: 50 2RF Dose Instruction: TAKE 1 TABLET BY MOUTH THREE TIMES A DAY Patient Comments: TAKES PRN Rx Instructions: TAKE 1 TABLET BY MOUTH THREE TIMES A DAY PRN; Trelegy Ellipta 100-62.5-25 mcg blister with device 1 inh inhalation DAILY Qty: 180 2RF fluticasone propionate 50 mcg/actuation spray,suspension 2 spray intranasal DAILY Qty: 16 0RF Rx Instructions: USE 2 SPRAYS IN EACH NOSTRIL DAILY cetirizine [Zyrtec] 10 mg Tablet 10 mg PO DAILY PRN (Reason: Allergy Symptoms) albuterol sulfate 90 mcg/actuation HFA aerosol inhaler 2 puff inhalation Q4-6H PRN (Reason: Shortness Of Breath Or Wheezing) Rx Instructions: USE 2 INHALATIONS EVERY 4 TO 6 HOURS NEEDED FOR SHORTNESS OF BREATH OR WHEEZING Follow-up/Referrals: Tim Alanis MD [Primary Care Provider] -
[2024-07-12] MEDS: CIPROFLOXACIN 400 MG/D5W 200ML 200 ML 200 MG IVPB (08:02)
[2024-07-12] MEDS: MORPHINE SULFATE (*CRX) 4 MG/ML INJ IV PUSH ×2 (08:03→17:32)
[2024-07-12 08:05] LABS: Lactic Acid Reflex 1.3 mmol/L (0.7-2.0)
[2024-07-12 08:09] LABS: CRP 4.5 mg/dL (<1.0)
[2024-07-12 08:30] LABS: Alanine Aminotransferase 33 U/L (6-50); Albumin Level 4.7 g/dL (3.5-5.1); Alkaline Phosphatase 74 U/L (38-126); Anion Gap 12 mmol/L (4-12); Aspartate Amino Transferase 29 U/L (17-59); Bilirubin,Total 1.3 mg/dL (0.2-1.3); Blood Urea Nitrogen 14 mg/dL (9-20); Calcium 9.5 mg/dL (8.4-10.2); Carbon Dioxide 21 mmol/L (22-30); Chloride 103 mmol/L (98-107); Estimated CRCL calculation 100 ml/min; Estimated Glomerular Filt Rate > 60; Glucose 105 mg/dL (65-110); Potassium 4.2 mmol/L (3.4-5.0); Sodium 136 mmol/L (137-145)
[2024-07-12 08:45] LABS: Procalcitonin 0.1 ng/mL
[2024-07-12 08:49] LABS: Erythrocyte Sedimentation Rate 14 mm/hr (0-20)
[2024-07-12 08:51] LABS: Basophils Absolute Auto 0.1 K/mm3 (0.0-0.1); Basophils Percent Auto 0.5 % (0.2-1.2); Eosinophils Absolute Auto 0.2 K/mm3 (0-0.3); Eosinophils Percent Auto 1.9 % (0-4.4); Hematocrit 43.4 % (42.0-52.0); Hemoglobin 15.1 g/dL (14.0-18.0); Immature Granulocyte Absolute 0.03 K/mm3 (0.00-0.031); Immature Granulocyte Percent A 0.2 % (0-0.5); Lymphocytes Absolute Auto 1.34 K/mm3 (0.9-3.2); Lymphocytes Percent Auto 10.8 % (18.3-44.2); Mean Corpuscular HGB Conc 34.8 g/dl (32-36); Mean Corpuscular Hemoglobin 32.6 pg (26-34); Mean Corpuscular Volume 93.7 fl (80-100); Mean Platelet Volume 10.8 fl (7.4-10.4); Monocytes Absolute Auto 0.9 K/mm3 (0.1-0.6); Monocytes Percent Auto 7.6 % (2.6-8.5); Neutrophils Absolute Auto 9.8 K/mm3 (1.3-6.7); Platelet Count Result 275 k/mm3 (150-375); Red Blood Count 4.63 M/mm3 (4.6-6.20); Red Cell Distribution Width 12.3 % (11.5-14.5); White Blood Count 12.4 K/mm3 (4.5-10.0)
[2024-07-12] MEDS: HYDROmorphone HCL INJ (*CRX) 1 MG/ML SYR 0.5 MG IV PUSH (08:55)
[2024-07-12] MEDS: IBUPROFEN IV 800 MG/200 ML 800 MG/200 ML BAG 400 MG IVPB (08:56)
[2024-07-12] MEDS: VANCOMYCIN 1,500 MG/NS 500 ML BAG 250 MG IVPB (09:16)
--- NOTE | 2024-07-12 10:42 | PC.NURSE ---
This patient, You Gudino, was admitted to 3 [facility] Surg Room 322-02. Patient/family oriented to hospital policies and general routines including ID bracelet, bed and alarms, visiting hours, pain management, procedures, bathroom and other care routines, personal items, smoking policy, room service/diet, and visiting hours. Information on how to activate the Rapid Response Team has been discussed. Patient/Family are encouraged to report perceived risks to care and to ask questions if they do not understand what they are told or what they should do.
[2024-07-12] MEDS: MORPHINE SULFATE (*CRX) 2 MG/ML INJ IV PUSH (12:36)
--- NOTE | 2024-07-12 12:53 | P.CONOP_ITS ---
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 This morning when he awoke he had severe pain at the great toe redness and swelling of the great toe erythema extending in a band up the dorsum of his forefoot anterior ankle anterior henao, anteromedial thigh to the groin with pain at the groin. He came to the emergency room and was admitted to the hospitalist. They did an x-ray of his foot cover that there was an age indeterminate fracture at the medial base of the distal phalanx and so I was consulted. The x-rays demonstrate a longitudinal oblique parasagittal plane fracture the medial aspect of the base of the distal phalanx that is mildly displaced. This involves approximately the medial 3 mm of the articular surface of the base of the distal phalanx. I did not see any gas on the x-rays. No other significant abnormality was noted. His past medical history is unremarkable other some musculoskeletal problems. History of acute bronchitis and allergies. He is very active. In the emergency room he received a dose of vancomycin as well as IV Cipro. He was admitted to the hospitalist service. Physical exam On exam today he is alert and oriented he is a pleasant gentleman in no acute distress. He has severe tenderness at the medial interphalangeal joint and soft tissues proximal to the medial aspect of the interphalangeal joint of the left great toe. There is a sealed puncture wound plantar aspect of the medial aspect of the great toe there is ecchymosis dorsal medial aspect great toe where apparently the nail protruded into but did not puncture through the dorsal skin of the great toe. There is a 2 in wide band of pink skin 1st MTP joint proximally over the dorsum of the foot anterior ankle anterior henao and then larger area of in the groin area where I suspect he has some lymphadenopathy already from the infection. The groin area was mildly tender. He has severe tenderness at the. He did not have significant edema or tenderness in the henao and thigh and no palpable subcutaneous crepitus. He did not have any tenderness over to our foot proximal to the toe arguing against an acute flexor tenosynov itis and he did not have any tenderness over the dorsum of foot arguing against an acute extensor tenosynovitis. Assessment and plan Patient has an acute cellulitis that has developed exceedingly rapidly following a puncture wound to his great toe yesterday. There is concern for development of necrotizing fasciitis and he will have to be followed closely for that. I have spoken with the the cyst about. I discussed with him Clostridium species will have to be covered. Group a strep is also a strong consideration due to the repetitive the of spread of infection in his case. The infection may be polymicrobial as well. He is going to add clindamycin and meropenem and continue with the vancomycin which should give excellent dual coverage for Gram- positive cocci strep species, MRSA, cluster him, and fairly broad-spectrum for Gram-negative bacteria which is also consideration with puncture wound through shoe due to the prevalence of Gram-negative bacteria living in shoes. These antibiotics are going to be started to understand the nature fracture and this will be a little bit sensitive in picking up signs of gas in the soft tissues to the puncture wound area. I have spoken with Anesthesia and the soon as there is an operating room open we are going to bring him to the operating room for incision and drainage of the medial aspect of the great toe the IP joint area and we will plan to leave the wound open for free drainage. The chip fracture fragment should not require internal fixation. The interface will be irrigated and through the fracture we should have access to the soft tissues immediately dorsal to the base of the proximal phalanx as well as immediately plantar to the base of the proximal phalanx for adequate decompression and irrigation of any accumulated purulence. This was explained to the patient he understands and wished to proceed as soon as possible. He did eat a full lunch at noon or just before noon and anesthesia is aware and a feel is his Risk of aspiration with appropriate measures. 90 minutes have been spent in total care of this patient thus far. (2) Cellulitis: Qualifiers: Site of cellulitis of extremity: lower extremity Laterality: left Code(s): L03.90 - Cellulitis, unspecified Status: Acute (3) Open fracture of distal phalanx of toe of left foot: Qualifiers: Encounter type: initial encounter Fracture alignment: displaced Toe: great toe Qualified Code(s): S92.422B - Displaced fracture of distal phalanx of left great toe, initial encounter for open fracture Code(s): S92.532B - Displaced fracture of distal phalanx of left lesser toe(s), initial encounter for open fracture Status: Acute History of Present Illness HPI Consult date: 07/12/24 Chief complaint: Cellulitis PMFSH Past Medical History Medical History Abnormal finding of blood chemistry Acute bronchitis Anxiety Biceps tendon rupture Biceps tendonitis on right Chronic left hip pain Chronic low back pain Colon cancer screening Ear itch Encounter for preventive health examination Encounter for routine adult health examination with abnormal findings Encounter for routine adult health examination without abnormal findings Hernia of abdominal wall Hip pain Hyperlipidemia Inguinal hernia Lumbar radiculopathy Plantar fasciitis, bilateral Prostate cancer screening Right shoulder pain Routine adult health maintenance Seasonal allergies Umbilical hernia Ventral hernia Surgical History Surgical History H/O bilateral inguinal hernia repair 09/18/22 robotic assisted bilateral inguinal hernia repair with mesh, lysis of adhesions approximately 30 minutes History of colonoscopy 2015 History of knee replacement 2011, left knee Family History Family History Father Malignant neoplasm of prostate Family history of coronary artery disease Grandparent Malignant neoplasm of prostate Social History Social History Social History: drinks coffee daily Smoking status: Never smoker Second hand tobacco smoke exposure: No Alcohol intake: current Drinks per week: 12 Alcohol use details: social-wine Substance use: never Substance use type: does not use Do You Feel Safe in your Home?: Yes Lack of Transportation: No Lack of Food: Never True Current Housing: I Have Housing Concerned About Future Housing: No Difficulty Paying Gas/Electric Bills: No Difficulty Paying for Meds: No Currently Unemployed: No Education: Bachelor's Degree Difficulty w/ Childcare or Family Care: No Living arrangements: with family Occupation/Education: occupation 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 100 mcg-umeclid 1 inh inhalation DAILY #180 ea 05/12/24 07/12/24 Rx 62.5 mcg-vilant 25 mcg inhalat.powder (Trelegy Ellipta) fluticasone propionate 50 2 spray intranasal DAILY #16 grams 06/29/24 07/12/24 Rx mcg/actuation nasal spray,suspension buspirone 10 mg tablet 10 mg PO DAILY 07/12/24 07/12/24 History valacyclovir 1 gram tablet 1,000 mg PO TID PRN cold sores 07/12/24 07/12/24 History Allergies Allergy/AdvReac Type Severity Reaction Status Date / Time No Known Allergies Allergy Unknown Verified 07/12/24 07:35 Vital Signs Vital Signs - 24 hr 07/12/24 07:32 07/12/24 09:03 07/12/24 09:51 Temperature 36.6 C 37.2 C Pulse Rate 83 77 69 Respiratory Rate 16 18 18 Blood Pressure 148/89 H 132/79 122/78 Pulse Oximetry 97 94 95 Oxygen Delivery Room Air 07/12/24 10:05 07/12/24 10:53 Temperature 36.2 C L Pulse Rate 62 Respiratory Rate 18 Blood Pressure 133/81 Pulse Oximetry 96 Oxygen Delivery Room Air Results Labs 07/12/24 07:50 07/12/24 07:50 Labs: Abnormal lab results 07/12/24 Range/Units 07:50 WBC 12.4 H (4.5-10.0) K/mm3 MPV 10.8 H (7.4-10.4) fl Neut % (Auto) 79.0 H (45.5-73.1) % Lymph % (Auto) 10.8 L (18.3-44.2) % Isabella # (Auto) 0.9 H (0.1-0.6) K/mm3 Absolute Neuts (auto) 9.8 H (1.3-6.7) K/mm3 Sodium 136 L (137-145) mmol/L Carbon Dioxide 21 L (22-30) mmol/L Creatinine 0.60 L (0.7-1.3) mg/dL C-Reactive Protein 4.5 H (<1.0) mg/dL H & H 07/12/24 Range/Units 07:50 Hgb 15.1 (14.0-18.0) g/dL Hct 43.4 (42.0-52.0) % All other labs normal.
--- NOTE | 2024-07-12 12:53 | P.HP_ITS ---
H&P: HPI History of Present Illness Date/Time: 07/12/24 12:53 Chief Complaint: Puncture wound to foot Narrative: 64-year-old male past medical history of hyperlipidemia and chronic back pain who stepped on a nail yesterday presents to the hospital with severe redness and pain to his left great toe and leg. 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 Patient states that was insulin painful and progressively got worse throughout the night. When he woke up this morning he had a red streak all the way up to his groin and was worried about infection and possible sepsis so he came to the hospital. Patient was seen by Orthopedics with concerns for necrotizing fasciitis and was taken emergently to OR for debridement. Leukocytosis at 12.4, CT of the left lower extremity is pending. Patient was started on IV antibiotics ciprofloxacin, clindamycin, meropenem, and vancomycin in the emergency room. Review of Systems Review of Systems: 12 systems were reviewed and are negativ e except for as per HPI. [facility] Past Medical History Medical History (Updated 07/12/24 @ 15:54 by Sheri Young, [employer]) Abnormal finding of blood chemistry Acute bronchitis Anxiety Biceps tendon rupture Biceps tendonitis on right Chronic left hip pain Chronic low back pain Colon cancer screening Ear itch Encounter for preventive health examination Encounter for routine adult health examination with abnormal findings Encounter for routine adult health examination without abnormal findings Hernia of abdominal wall Hip pain Hyperlipidemia Inguinal hernia Lumbar radiculopathy Plantar fasciitis, bilateral Prostate cancer screening Right shoulder pain Routine adult health maintenance Seasonal allergies Umbilical hernia Ventral hernia Surgical History Surgical History H/O bilateral inguinal hernia repair 09/18/22 robotic assisted bilateral inguinal hernia repair with mesh, lysis of adhesions approximately 30 minutes History of colonoscopy 2014 History of knee replacement 2011, left knee Family History Family History Father Malignant neoplasm of prostate Family history of coronary artery disease Grandparent Malignant neoplasm of prostate Social History Social History Social History: drinks coffee daily Smoking status: Never smoker Second hand tobacco smoke exposure: No Alcohol intake: current Drinks per week: 12 Alcohol use details: social-wine Substance use: never Substance use type: does not use Do You Feel Safe in your Home?: Yes Lack of Transportation: No Lack of Food: Never True Current Housing: I Have Housing Concerned About Future Housing: No Difficulty Paying Gas/Electric Bills: No Difficulty Paying for Meds: No Currently Unemployed: No Education: Bachelor's Degree Difficulty w/ Childcare or Family Care: No Living arrangements: with family Occupation/Education: occupation 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 100 mcg-umeclid 1 inh inhalation DAILY #180 ea 05/12/24 07/12/24 Rx 62.5 mcg-vilant 25 mcg inhalat.powder (Trelegy Ellipta) fluticasone propionate 50 2 spray intranasal DAILY #16 grams 06/29/24 07/12/24 Rx mcg/actuation nasal spray,suspension buspirone 10 mg tablet 10 mg PO DAILY 07/12/24 07/12/24 History valacyclovir 1 gram tablet 1,000 mg PO TID PRN cold sores 07/12/24 07/12/24 History Allergies Allergy/AdvReac Type Severity Reaction Status Date / Time No Known Allergies Allergy Unknown Verified 07/12/24 13:53 Vital Signs Vital Signs - 24 hr 07/12/24 07:32 07/12/24 09:03 07/12/24 09:51 Temperature 97.9 F 99.0 F Pulse Rate 83 77 69 Respiratory Rate 16 18 18 Blood Pressure 148/89 H 132/79 122/78 Pulse Oximetry 97 94 95 Oxygen Delivery Room Air 07/12/24 10:05 07/12/24 10:53 Temperature 97.1 F L Pulse Rate 62 Respiratory Rate 18 Blood Pressure 133/81 Pulse Oximetry 96 Oxygen Delivery Room Air Exam Narrative: General: well appearing, appears stated age. HEENT: normocephalic, atraumatic. Mucous membranes moist. EOMI, PERRLA, bilateral sclera anicteric, no conjunctival injection. Neck supple without JVD, lymphadenopathy, or bruit. Respiratory: clear to ascultation bilaterally. No rales/rhonic/wheezes. Cardiovascular: Regular rate and rhythm, normal S1-S2 upon ascultation. No murmurs, rubs, or clicks. PMI is nondisplaced, capillary refill less than 3 second. Abdomen: Soft, round, no pulsatile masses, nondistended and nontender. No rebound, no guarding. No CVA tenderness, no hepatosplenomegaly. Bowel sounds present to all four quadrants. No high pitch or tinkling sounds, resonant to percussion. Extremities: No cyanosis, clubbing, or edema present. Pulses are palpable 2/2. Right foot in surgical dressing clean dry intact and surgical shoe Neuro: Alert and orientated x 4. PERRLA. Cranial nerves 2-12 intact without focal deficit. Skin: Warm, dry, and intact, without rash, erythema, or lesion. Psych: pleasant, cooperative, normal speech, normal affect, no hallucinations, no dysarthia H&P: Results Labs Labs: Short CBC 07/12/24 Range/Units 07:50 WBC 12.4 H (4.5-10.0) K/mm3 Hgb 15.1 (14.0-18.0) g/dL Hct 43.4 (42.0-52.0) % Plt Count 275 (150-375) k/mm3 BMP 07/12/24 07:50 Sodium 136 L Potassium 4.2 Chloride 103 Carbon Dioxide 21 L BUN 14 Creatinine 0.60 L Glucose 105 Calcium 9.5 Liver Function 07/12/24 Range/Units 07:50 Total Bilirubin 1.3 (0.2-1.3) mg/dL AST 29 (17-59) U/L ALT 33 (6-50) U/L Alkaline Phosphatase 74 (38-126) U/L Albumin 4.7 (3.5-5.1) g/dL Assessment and Plan Assessment and plan (1) Necrotizing fasciitis: Code(s): M72.6 - Necrotizing fasciitis Status: Acute Assessment and Plan: Ortho consulted Orthopedics concerned about necrotizing fasciitis and took patient emergently to OR today. Status post Incision and debridement of plantar medial and dorsal medial left great toe abscess and open wound packing 07/12/2024 Pain control bowel protocol Continue IV antibiotics Clindamycin, meropenem and vancomycin Blood cultures pending A.m. labs pending (2) Puncture wound of foot: Qualifiers: Encounter type: initial encounter Laterality: left Qualified Code(s): S91.332A - Puncture wound without foreign body, left foot, initial encounter Code(s): S91.339A - Puncture wound without foreign body, unspecified foot, initial encounter Status: Acute Assessment and Plan: Stepped on a nail left great toe Tetanus received in 2021 See above (3) Cellulitis: Qualifiers: Laterality: left Site of cellulitis of extremity: lower extremity Code(s): L03.90 - Cellulitis, unspecified Status: Acute Assessment and Plan: Secondary to above Quality VTE Prophylaxis VTE prophylaxis: pharmacologic ordered Hospitalist MIPS Advance Care Plan I have confirmed that the patient's Advanced Care Plan is present, code status is documented, or surrogate decision maker is listed in patient medical record.: Yes Medication Reconciliation I have utilized all available resources to obtain, update and review the patients current medications (includes all prescriptions, OTC, herbals, cannabis, and nutritional supplements).: Yes
[2024-07-12] MEDS: LACTATED RINGERS 1,000 ML 30 ML IV CONT (13:15)
--- NOTE | 2024-07-12 13:28 | P.PNAN_ITS ---
Anes - Initial Pre Proc Eval Procedure: Operation Date: 07/12/24 13:30 Proposed Procedures p Incision And Drainage Left Great Toe Open Fracture - Jayden Nguyen MD Date/Time: 07/12/24 13:28 Surgeon: Jeramie Torre MD Pre Op Diagnosis: Cellulitis Patient Data Age: 64 Gender: M Height: 1.7 m Weight: 82.1 kg Last Vital Signs Temp 36.2 C L 07/12/24 10:05 Pulse 62 07/12/24 10:05 Resp 18 07/12/24 10:05 BP 133/81 07/12/24 10:05 Pulse Ox 96 07/12/24 10:05 O2 Del Method Room Air 07/12/24 10:53 Allergies Allergy/AdvReac Type Severity Reaction Status Date / Time No Known Allergies Allergy Unknown Verified 07/12/24 07:35 Home Medications Medication Instructions Recorded Confirmed Type albuterol sulfate 90 mcg/actuation 2 puff inhalation Q4-6H PRN 04/19/24 07/12/24 History aerosol inhaler Shortness Of Breath Or Wheezing cetirizine 10 mg tablet (Zyrtec) 10 mg PO DAILY Allergy Symptoms 04/19/24 07/12/24 History fluticasone fur. 100 mcg-umeclid 1 inh inhalation DAILY #180 ea 05/12/24 07/12/24 Rx 62.5 mcg-vilant 25 mcg inhalat.powder (Trelegy Ellipta) fluticasone propionate 50 2 spray intranasal DAILY #16 grams 06/29/24 07/12/24 Rx mcg/actuation nasal spray,suspension buspirone 10 mg tablet 10 mg PO DAILY 07/12/24 07/12/24 History valacyclovir 1 gram tablet 1,000 mg PO TID PRN cold sores 07/12/24 07/12/24 History Laboratory Tests 07/12/24 07:50 WBC 12.4 H K/mm3 (4.5-10.0) RBC 4.63 M/mm3 (4.6-6.20) Hgb 15.1 g/dL (14.0-18.0) Hct 43.4 % (42.0-52.0) MCV 93.7 fl (80-100) MCH 32.6 pg (26-34) MCHC 34.8 g/dl (32-36) RDW 12.3 % (11.5-14.5) Plt Count 275 k/mm3 (150-375) MPV 10.8 H fl (7.4-10.4) Immature Gran % (Auto) 0.2 % (0-0.5) Neut % (Auto) 79.0 H % (45.5-73.1) Lymph % (Auto) 10.8 L % (18.3-44.2) Calvert % (Auto) 7.6 % (2.6-8.5) Eos % (Auto) 1.9 % (0-4.4) Baso % (Auto) 0.5 % (0.2-1.2) Lymph # (Auto) 1.34 K/mm3 (0.9-3.2) Calvert # (Auto) 0.9 H K/mm3 (0.1-0.6) Eos # (Auto) 0.2 K/mm3 (0-0.3) Baso # (Auto) 0.1 K/mm3 (0.0-0.1) Abs Immat Gran (auto) 0.03 K/mm3 (0.00-0.031) Absolute Neuts (auto) 9.8 H K/mm3 (1.3-6.7) Absolute Nucleated RBC 0.000 K/mm3 (0.0-0.012) Nucleated RBC % 0.0 % (0.0-0.2) ESR 14 mm/hr (0-20) Sodium 136 L mmol/L (137-145) Potassium 4.2 mmol/L (3.4-5.0) Chloride 103 mmol/L (98-107) Carbon Dioxide 21 L mmol/L (22-30) Anion Gap 12 mmol/L (4-12) BUN 14 mg/dL (9-20) Creatinine 0.60 L mg/dL (0.7-1.3) Estim Creat Clear Calc 100 ml/min Estimated GFR > 60 (59 - ) Glucose 105 mg/dL (65-110) Lactic Acid 1.3 mmol/L (0.7-2.0) Calcium 9.5 mg/dL (8.4-10.2) Total Bilirubin 1.3 mg/dL (0.2-1.3) AST 29 U/L (17-59) ALT 33 U/L (6-50) Alkaline Phosphatase 74 U/L (38-126) C-Reactive Protein 4.5 H mg/dL (<1.0) Total Protein 8.0 g/dL (6.3-8.2) Albumin 4.7 g/dL (3.5-5.1) Procalcitonin 0.1 ng/mL Patient hx anesthesia problems: none Family hx anesthesia problems: none Results Review: All pre-operative results and documents have been reviewed as part of the pre- operative evaluation. [facility] Past Medical History Medical History Abnormal finding of blood chemistry Acute bronchitis Anxiety Biceps tendon rupture Biceps tendonitis on right Chronic left hip pain Chronic low back pain Colon cancer screening Ear itch Encounter for preventive health examination Encounter for routine adult health examination with abnormal findings Encounter for routine adult health examination without abnormal findings Hernia of abdominal wall Hip pain Hyperlipidemia Inguinal hernia Lumbar radiculopathy Plantar fasciitis, bilateral Prostate cancer screening Right shoulder pain Routine adult health maintenance Seasonal allergies Umbilical hernia Ventral hernia Surgical History Surgical History H/O bilateral inguinal hernia repair 09/18/22 robotic assisted bilateral inguinal hernia repair with mesh, lysis of adhesions approximately 30 minutes History of colonoscopy 2014 History of knee replacement 2011, left knee Family History Family History Father Malignant neoplasm of prostate Family history of coronary artery disease Grandparent Malignant neoplasm of prostate Social History Social History Social History: drinks coffee daily Smoking status: Never smoker Second hand tobacco smoke exposure: No Alcohol intake: current Drinks per week: 12 Alcohol use details: social-wine Substance use: never Substance use type: does not use Do You Feel Safe in your Home?: Yes Lack of Transportation: No Lack of Food: Never True Current Housing: I Have Housing Concerned About Future Housing: No Difficulty Paying Gas/Electric Bills: No Difficulty Paying for Meds: No Currently Unemployed: No Education: Bachelor's Degree Difficulty w/ Childcare or Family Care: No Living arrangements: with family Occupation/Education: occupation 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 Informed Consent: The patient's anesthetic plan and its attendant risks and benefits were discussed with the patient/family/POA. Questions were solicited and answers provided to the satisfaction of the patient/family/POA.
[2024-07-12] MEDS: ONDANSETRON INJ 4 MG/2 ML VIAL IV PUSH ×2 (13:35→16:30)
[2024-07-12] MEDS: FAMOTIDINE 20 MG/2 ML VIAL IV PUSH (13:35)
[2024-07-12] MEDS: MEROPENEM 1 GM/NS 100 ML 1 GM/100 ML BAG IVPB ×2 (13:40→20:30)
[2024-07-12] MEDS: CLINDAMYCIN 900 MG/D5W 50 ML 900 MG/50 ML PIGGYBACK 50 MG IVPB ×2 (13:50→20:31)
--- NOTE | 2024-07-12 14:37 | P.OP_ITS ---
Procedure Note - Detailed Date of Procedure 07/12/24 Pre-op Diagnosis Abscess left great toe due to puncture wound from the nail on for of chicken coop with ascending leg cellulitis Post-op Diagnosis Same Procedure Performed Incision and debridement of plantar medial and dorsal medial left great toe abscess and open wound packing Surgeon Jayden Nguyen MD Anesthesia General Description of Procedure Patient was brought to the operating room and general anesthesia was administered. I examined his left knee replacement. He had no redness or warmth and no effusion with good range of motion. A 15 mm longitudinal incision was made over the medial aspect of the left great toe centered just distal to the IP joint. It was centered on the mid plane between the plantar puncture wound and the center of the pointing abscess over the dorsal medial aspect of the great toe. I think this nail passed just a mohan le bit distal to the IP joint itself and was more medial to a base of the distal phalanx just coincidentally where he had CT proven chronic fracture medial base of distal phalanx. After incising the skin blunt dissection was performed anterior to the base of the distal phalanx and this entered a pocket of purulence and we sent that fluid for culture. The fluid was a thin dumas fluid. The tissues themselves were stained with specks of [place] presumably a positive from the guillermo nail a needle-nose rongeur was used to debride the tissue in the abscess cavity over the dorsomedial aspect of the toe gently debrided with a small curette. We then used a hemostat to anterior the tract from the needle puncture plantar to the phalanx and this also decompressed a small amount of dumas thin fluid also sent for culture. We opened up the puncture wound hole at the dermis. The epidermis over the anterior flap of skin from the underlying dermis and was conservatively debrided. The dermis was left intact. We irrigated the wound thoroughly and on wrap the Esmarch which we used as a tourniquet in the calf and the dermis pinked up well and had good bleeding throughout. The wound was packed with a small amount of quarter-inch Nu Gauze both in the plantar abscess cavity of dorsal abscess cavity to allow drainage. A soft bulky dressing was applied the patient transferred to postop recovery in good condition the complications. [facility] Billing Surgery - Charge Forward: Surgery Billing (Incision and debridement abscess left great toe)
[2024-07-12] MEDS: fentaNYL CITRATE INJ (*CRX) 100 MCG/2 ML VIAL 25 MCG IV PUSH ×3 (15:10→15:25)
[2024-07-12] MEDS: oxyCODONE HCL (*CRX) 5 MG TAB IR PO (16:29)
[2024-07-12] MEDS: ACETAMINOPHEN 500 MG TABLET 1000 MG PO ×2 (16:31→22:53)
[2024-07-12] MEDS: SODIUM CHLORIDE 0.9% IV 1,000 ML 125 ML IV CONT (16:40)
[2024-07-12] MEDS: SENNA/DOCUSATE SODIUM TABLET 2 TAB PO (16:40)
[2024-07-12] MEDS: VANCOMYCIN 1,500 MG/NS 500 ML 1,500 MG/500 ML BAG 250 MG IVPB (21:52)
[2024-07-12] MEDS: oxyCODONE HCL (*CRX) 5 MG TAB IR 10 MG PO (22:49)
[2024-07-13] VITALS (8 sets, daily range): BP systolic 107–120; BP diastolic 57–81; PULSE 55–67; RESP 12–18; TEMP 36.1–37.1; O2SAT 95–99
[2024-07-13] MEDS: ACETAMINOPHEN 500 MG TABLET 1000 MG PO ×3 (04:50→17:20)
[2024-07-13] MEDS: MEROPENEM 1 GM/NS 100 ML 1 GM/100 ML BAG IVPB ×3 (05:01→20:08)
[2024-07-13] MEDS: oxyCODONE HCL (*CRX) 5 MG TAB IR PO (06:08)
[2024-07-13] MEDS: CLINDAMYCIN 900 MG/D5W 50 ML 900 MG/50 ML PIGGYBACK 50 MG IVPB ×3 (06:09→21:42)
[2024-07-13 06:35] LABS: Estimated CRCL calculation 77 ml/min; Estimated Glomerular Filt Rate > 60
[2024-07-13 08:23] LABS: Basophils Percent Auto 0.2 % (0.2-1.2); Hematocrit 39.4 % (42.0-52.0); Hemoglobin 13.3 g/dL (14.0-18.0); Immature Granulocyte Absolute 0.04 K/mm3 (0.00-0.031); Immature Granulocyte Percent A 0.3 % (0-0.5); Lymphocytes Absolute Auto 0.67 K/mm3 (0.9-3.2); Lymphocytes Percent Auto 5.9 % (18.3-44.2); Mean Corpuscular HGB Conc 33.8 g/dl (32-36); Mean Corpuscular Hemoglobin 32.5 pg (26-34); Mean Corpuscular Volume 96.3 fl (80-100); Monocytes Absolute Auto 0.6 K/mm3 (0.1-0.6); Monocytes Percent Auto 5.3 % (2.6-8.5); Neutrophils Absolute Auto 10.1 K/mm3 (1.3-6.7); Neutrophils Percent Auto 88.3 % (45.5-73.1); Platelet Count Result 246 k/mm3 (150-375); Red Blood Count 4.09 M/mm3 (4.6-6.20); Red Cell Distribution Width 12.6 % (11.5-14.5); White Blood Count 11.5 K/mm3 (4.5-10.0)
[2024-07-13] MEDS: FLUTICASONE PROPIONATE 0.05% NA SPR 16 GM BTL (*BKC) 2 SPRAY NASAL (08:26)
[2024-07-13] MEDS: ENOXAPARIN 40 MG/0.4 ML SYRINGE SUB-Q (08:28)
[2024-07-13 08:30] LABS: Alanine Aminotransferase 26 U/L (6-50); Alkaline Phosphatase 61 U/L (38-126); Anion Gap 11 mmol/L (4-12); Aspartate Amino Transferase 26 U/L (17-59); Bilirubin,Total 0.4 mg/dL (0.2-1.3); Blood Urea Nitrogen 15 mg/dL (9-20); Calcium 8.8 mg/dL (8.4-10.2); Carbon Dioxide 20 mmol/L (22-30); Chloride 105 mmol/L (98-107); Estimated CRCL calculation 77 ml/min; Estimated Glomerular Filt Rate > 60; Glucose 134 mg/dL (65-110); Sodium 136 mmol/L (137-145)
[2024-07-13] MEDS: MORPHINE SULFATE (*CRX) 4 MG/ML INJ IV PUSH ×3 (08:30→21:49)
[2024-07-13] MEDS: valACYclovir HCL 500 MG TABLET 1000 MG PO ×2 (08:31→17:20)
[2024-07-13] MEDS: LORATADINE 10 MG TABLET PO (08:31)
[2024-07-13] MEDS: SENNA/DOCUSATE SODIUM TABLET 2 TAB PO ×2 (08:31→17:20)
[2024-07-13] MEDS: busPIRone HCL 10 MG TABLET PO (08:35)
[2024-07-13] MEDS: VANCOMYCIN 1,500 MG/NS 500 ML 1,500 MG/500 ML BAG 250 MG IVPB ×2 (08:36→22:48)
[2024-07-13] MEDS: TETANUS,DIPHTHERIA,AC PERTUSSIS ADULT (0.5 ML) BOOSTRIX IM (08:42)
--- NOTE | 2024-07-13 11:32 | P.PNOP_ITS ---
Progress Note: A&P Assessment and Plan (1) Abscess of left great toe: Code(s): L02.612 - Cutaneous abscess of left foot Status: Acute Assessment and Plan: Patient is postop day 1 after incision and drainage and debridement of abscess plantar medial medial and dorsal medial to the base of the left great toe distal phalanx from a penetrating nail injury that he stepped on that was a guillermo nail residing in a chicken coop so it was extremely dirty. On exam today he still has severe tenderness over the dorsal medial aspect of the left great toe there is no tenderness at the 1st MTP joint or dorsal foot. The erythema over the anteromedial aspect of the calf knee and distal thigh is completely resolved. He still has the larger area of erythema in the anteromedial proximal thigh but is much less red and more faint any has now just slight sensitivity to palpation of this area. He had no tenderness over the medial distal thigh knee calf or foot. His knee replacement on the left is benign there is no effusion or tenderness about the knee. I removed the Nu Gauze from toe wound. This was quite painful for him as this area is very tender. It looked the way it looked yesterday with no change. He has the dorsal skin which showed some partial gross is with blistering of the epidermis dorsally and the dermis which is pink but may be a questionable viability dorsally and the skin plantar to the incision is in good condition. The swelling is perhaps a little bit less than yesterday. His white count is mildly elevated today 11.5. The 3 g stains showed mixed bacteria with a few Gram-negative rods in a few Gram-positive bacteria on each Gram stain. Cultures are pending. Clinically he is improving. He still has active infection the great toe but the ascending cellulitis has dramatically improved with the exception of some mild residual cellulitis at the proximal anteromedial thigh in an area about 5 x 6 in which although is still mildly tender is much improved compared to yesterday. With respect the diagnosis of necrotizing fasciitis, I do not think that his presentation would be accurately described as necrotizing fasciitis but rather an abscess in the great toe and cellulitis. Necrotizing fasciitis would imply super to have infection ascending along the fascial plane and I think this was more of a cellulitis issue and hopefully it was addressed before reaching that level of severity. Continue current antibiotics and await cultures. (2) Puncture wound of foot: Qualifiers: Encounter type: initial encounter Laterality: left Qualified Code(s): S91.332A - Puncture wound without foreign body, left foot, initial encounter Code(s): S91.339A - Puncture wound without foreign body, unspecified foot, initial encounter Status: Acute (3) Cellulitis: Qualifiers: Laterality: left Site of cellulitis of extremity: lower extremity Site of cellulitis: extremity Qualified Code(s): L03.116 - Cellulitis of left lower limb Code(s): L03.90 - Cellulitis, unspecified Status: Acute Subjective Subjective Date/Time Seen: 07/13/24 11:32 Objective Data Vital Signs Vital Signs: Vital Signs - 24 hr 07/12/24 13:15 07/12/24 14:42 07/12/24 15:00 Temperature 36.7 C 36.3 C L Pulse Rate 70 80 65 Respiratory Rate 14 16 16 Blood Pressure 138/78 129/70 117/82 Pulse Oximetry 99 100 100 Oxygen Delivery Room Air Simple Face Mask Simple Face Mask Oxygen Flow Rate 8 8 Fraction of Inspired Oxygen 07/12/24 15:15 07/12/24 15:30 07/12/24 16:25 Temperature Pulse Rate 62 65 Respiratory Rate 16 16 Blood Pressure 134/79 124/79 Pulse Oximetry 100 100 100 Oxygen Delivery Simple Face Mask Nasal Cannula Room Air Oxygen Flow Rate 8 2 Fraction of Inspired Oxygen 21 07/12/24 16:30 07/12/24 16:45 07/12/24 17:15 Temperature 36.0 C L 36.1 C L 36.2 C L Pulse Rate 66 64 82 Respiratory Rate 16 18 18 Blood Pressure 130/76 127/92 H 131/80 Pulse Oximetry 95 95 95 Oxygen Delivery Oxygen Flow Rate Fraction of Inspired Oxygen 07/12/24 18:15 07/12/24 21:56 07/13/24 01:56 Temperature 36.4 C L 36.4 C 37.0 C Pulse Rate 66 63 57 L Respiratory Rate 18 12 12 Blood Pressure 126/73 120/69 107/65 Pulse Oximetry 95 95 95 Oxygen Delivery Oxygen Flow Rate Fraction of Inspired Oxygen 07/13/24 05:56 07/13/24 08:27 07/13/24 08:30 Temperature 36.2 C L Pulse Rate 67 Respiratory Rate 12 Blood Pressure 107/81 Pulse Oximetry 95 95 Oxygen Delivery Room Air Room Air Oxygen Flow Rate Fraction of Inspired Oxygen 07/13/24 09:56 Temperature 37.1 C Pulse Rate 55 L Respiratory Rate 18 Blood Pressure 112/64 Pulse Oximetry 96 Oxygen Delivery Oxygen Flow Rate Fraction of Inspired Oxygen Intake/Output Intake/Output: Intake & Output 07/10/24 07/11/24 07/12/24 07/13/24 23:59 23:59 23:59 23:59 Intake Total 1640 1565 Balance 1640 1565 Meds/Results Medications: Active Medications Generic Name Dose Route Start Last Admin Trade Name Freq PRN Reason Stop Dose Admin Acetaminophen 1,000 mg 07/12/24 18:00 07/13/24 04:50 Acetaminophen 500 Mg Tablet PO 1,000 mg Q6H GRAEME Administration Albuterol 2 puff 07/12/24 13:05 Albuterol Sulfate (*Sp) Aerosol 1 Puff INHALATION Q4-6H PRN Shortness Of Breath Or Wheezing Buspirone HCl 10 mg 07/13/24 09:00 07/13/24 08:35 Buspirone Hcl 10 Mg Tablet PO 10 mg DAILY GRAEME Administration Enoxaparin Sodium 40 mg 07/13/24 09:00 07/13/24 08:28 Enoxaparin 40 Mg/0.4 Ml Syringe SUB-Q 40 mg DAILY GRAEME Administration Fluticasone Propionate 2 spray 07/13/24 09:00 07/13/24 08:26 Fluticasone Propionate 0.05% Na Spr 16 Gm Btl (*Bkc) NASAL 2 spray DAILY GRAEME Administration Fluticasone/Umeclidinium/Vilanterol 1 puff 07/13/24 08:00 Fluticasone/Umeclidin/Vilanter 100-62.5-25 Mcg Ellipta INHALATION DAILYRT GRAEME Vancomycin HCl 1,500 mg in 500 mls @ 250 mls/hr 07/12/24 21:00 07/13/24 08:36 Vancomycin 1,500 Mg/Ns 500 Ml IVPB 250 mls/hr Q12H GRAEME Administration Clindamycin Phosphate 900 mg in 50 mls @ 50 mls/hr 07/12/24 14:00 07/13/24 06:09 Cleocin 900 Mg/D5w 50 Ml IVPB 50 mls/hr Q8H GRAEME Administration Meropenem 1 gm in 100 mls @ 200 mls/hr 07/12/24 13:00 07/13/24 05:01 IVPB 200 mls/hr Q8H GRAEME Administration Ibuprofen 400 mg 07/12/24 16:11 Ibuprofen 400 Mg Tablet PO Q6H PRN Pain Rated 1-3 Loratadine 10 mg 07/13/24 09:00 07/13/24 08:31 Loratadine 10 Mg Tablet PO 10 mg QAM GRAEME Administration Morphine Sulfate 4 mg 07/12/24 17:22 07/13/24 08:30 Morphine Sulfate (*Crx) 4 Mg/Ml Inj IV PUSH 4 mg Q4H PRN Administration Breakthrough Pain Ondansetron HCl 4 mg 07/12/24 12:58 07/12/24 16:30 Ondansetron Inj 4 Mg/2 Ml Vial IV PUSH 4 mg Q6H PRN Administration Nausea And Vomiting Oxycodone HCl 5 mg 07/12/24 17:24 07/13/24 06:08 Oxycodone Hcl (*Crx) 5 Mg Tab Ir PO 5 mg Q4H PRN Administration Pain Rated 4-6 Oxycodone HCl 10 mg 07/12/24 17:24 07/12/24 22:49 Oxycodone Hcl (*Crx) 5 Mg Tab Ir PO 10 mg Q4H PRN Administration Pain Rated 7-10 Polyethylene Glycol 17 gm 07/13/24 09:00 07/13/24 08:35 Polyethylene Glycol 3350 17 Gm Powd.Pack PO Not Given QAM GRAEME Polyethylene Glycol 17 gm 07/13/24 09:00 07/13/24 08:36 Polyethylene Glycol 3350 17 Gm Powd.Pack PO Not Given QAM GRAEME Senna/Docusate Sodium 2 tab 07/12/24 17:00 07/13/24 08:31 Senna/Docusate Sodium Tablet PO 2 tab BID GRAEME Administration Valacyclovir HCl 1,000 mg 07/12/24 16:11 07/13/24 08:31 Valacyclovir Hcl 500 Mg Tablet PO 1,000 mg TID PRN Administration cold sores Radiology Results: ITS Impressions Foot X-Ray 07/12/24 09:55 IMPRESSION: fracture in the area of the base of the distal phalanx of the left big toe which may be acute or chronic. Clinical correlation for tenderness in the area advised. Foot CT 07/12/24 13:08 IMPRESSION: 1. No radiopaque foreign body or acute fracture. Labs Labs: Laboratory Results - last 24 hr 07/13/24 07/13/24 05:38 05:40 WBC 11.5 H RBC 4.09 L Hgb 13.3 L Hct 39.4 L MCV 96.3 MCH 32.5 MCHC 33.8 RDW 12.6 Plt Count 246 MPV 11.0 H Immature Gran % (Auto) 0.3 Neut % (Auto) 88.3 H Lymph % (Auto) 5.9 L [place] % (Auto) 5.3 Eos % (Auto) 0.0 Baso % (Auto) 0.2 Lymph # (Auto) 0.67 L [place] # (Auto) 0.6 Eos # (Auto) 0.0 Baso # (Auto) 0.0 Abs Immat Gran (auto) 0.04 H Absolute Neuts (auto) 10.1 H Absolute Nucleated RBC 0.000 Nucleated RBC % 0.0 Sodium 136 L Potassium 4.0 Chloride 105 Carbon Dioxide 20 L Anion Gap 11 BUN 15 Creatinine 0.80 0.80 Estim Creat Clear Calc 77 77 Estimated GFR > 60 > 60 Glucose 134 H Calcium 8.8 Magnesium 2.0 Total Bilirubin 0.4 AST 26 ALT 26 Alkaline Phosphatase 61 Total Protein 7.0 Albumin 4.0
--- NOTE | 2024-07-13 11:52 | P.PNIM_ITS ---
Progress Note: A&P Assessment and Plan (1) Necrotizing fasciitis: Code(s): M72.6 - Necrotizing fasciitis Status: Inactive Assessment and Plan: * Ortho consulted * Orthopedics concerned about necrotizing fasciitis and took patient emergently to OR 07/12/24. * Status post Incision and debridement of plantar medial and dorsal medial left great toe abscess and open wound packing 07/12/2024 * Pain control bowel protocol * Continue IV antibiotics * Clindamycin, meropenem, and vancomycin * Blood cultures no growth to date. * Wound culture preliminary showed few gram + cocci and few Gram negative bacilli. * WBC improving from 12.4 to 11.5. * Monitor labs. (2) Puncture wound of foot: Qualifiers: Encounter type: initial encounter Laterality: left Qualified Code(s): S91.332A - Puncture wound without foreign body, left foot, initial encounter Code(s): S91.339A - Puncture wound without foreign body, unspecified foot, initial encounter Status: Acute Assessment and Plan: * Stepped on a nail left great toe * Tetanus received in 2021 * See above (3) Cellulitis: Qualifiers: Laterality: left Site of cellulitis: extremity Site of cellulitis of extremity: lower extremity Qualified Code(s): L03.116 - Cellulitis of left lower limb Code(s): L03.90 - Cellulitis, unspecified Status: Acute Assessment and Plan: * Secondary to above * Improving. Subjective Date/time seen: 07/13/24 11:52 Interval history: Patient reports pain in left toe is a 4 , frequent, and aching. Patient denies chest pain, palpitations, headache, dizziness, nausea, or vomiting. Patient feels that redness has improved to left thigh. Review of Systems Review of Systems: All systems reviewed & are unremarkable except as noted in HPI and below Exam Const: General: no acute distress Eyes: Sclera: sclerae normal Resp: Effort & Inspection: normal respiratory effort Auscultation: clear to auscultation bilaterally Cardio: Rate: regular rate Rhythm: regular rhythm GI: GI Palp: Yes Soft to palpation Auscultation: normal bowel sounds Skin: Other: Left great toe with scant serosanguineous drainage on dressing with erythema from I&D area. Redness fading in left thigh marked area. Neuro: Speech: normal speech Extrem: Other: Left great toe with scant serosanguineous drainage on dressing with erythema from I&D area. Redness fading in left thigh marked area. Psych: Mental Status: mental status grossly normal Affect: normal affect Objective Data Vital Signs Vital Signs: Vital Signs - 24 hr 07/12/24 13:15 07/12/24 14:42 07/12/24 15:00 Temperature 98.1 F 97.3 F L Pulse Rate 70 80 65 Respiratory Rate 14 16 16 Blood Pressure 138/78 129/70 117/82 Pulse Oximetry 99 100 100 Oxygen Delivery Room Air Simple Face Mask Simple Face Mask Oxygen Flow Rate 8 8 Fraction of Inspired Oxygen 07/12/24 15:15 07/12/24 15:30 07/12/24 16:25 Temperature Pulse Rate 62 65 Respiratory Rate 16 16 Blood Pressure 134/79 124/79 Pulse Oximetry 100 100 100 Oxygen Delivery Simple Face Mask Nasal Cannula Room Air Oxygen Flow Rate 8 2 Fraction of Inspired Oxygen 21 07/12/24 16:30 07/12/24 16:45 07/12/24 17:15 Temperature 96.8 F L 97.0 F L 97.1 F L Pulse Rate 66 64 82 Respiratory Rate 16 18 18 Blood Pressure 130/76 127/92 H 131/80 Pulse Oximetry 95 95 95 Oxygen Delivery Oxygen Flow Rate Fraction of Inspired Oxygen 07/12/24 18:15 07/12/24 21:56 07/13/24 01:56 Temperature 97.5 F L 97.6 F 98.6 F Pulse Rate 66 63 57 L Respiratory Rate 18 12 12 Blood Pressure 126/73 120/69 107/65 Pulse Oximetry 95 95 95 Oxygen Delivery Oxygen Flow Rate Fraction of Inspired Oxygen 07/13/24 05:56 07/13/24 08:27 07/13/24 08:30 Temperature 97.2 F L Pulse Rate 67 Respiratory Rate 12 Blood Pressure 107/81 Pulse Oximetry 95 95 Oxygen Delivery Room Air Room Air Oxygen Flow Rate Fraction of Inspired Oxygen 07/13/24 09:56 Temperature 98.7 F Pulse Rate 55 L Respiratory Rate 18 Blood Pressure 112/64 Pulse Oximetry 96 Oxygen Delivery Oxygen Flow Rate Fraction of Inspired Oxygen Intake/Output Intake/Output: Intake & Output 07/10/24 07/11/24 07/12/24 07/13/24 23:59 23:59 23:59 23:59 Intake Total 2096 1565 Balance 1640 1565 Meds/Results Medications: Active Medications Generic Name Dose Route Start Last Admin Trade Name Freq PRN Reason Stop Dose Admin Acetaminophen 1,000 mg 07/12/24 18:00 07/13/24 04:50 Acetaminophen 500 Mg Tablet PO 1,000 mg Q6H GRAEME Administration Albuterol 2 puff 07/12/24 13:05 Albuterol Sulfate (*Sp) Aerosol 1 Puff INHALATION Q4-6H PRN Shortness Of Breath Or Wheezing Buspirone HCl 10 mg 07/13/24 09:00 07/13/24 08:35 Buspirone Hcl 10 Mg Tablet PO 10 mg DAILY GRAEME Administration Enoxaparin Sodium 40 mg 07/13/24 09:00 07/13/24 08:28 Enoxaparin 40 Mg/0.4 Ml Syringe SUB-Q 40 mg DAILY GRAEME Administration Fluticasone Propionate 2 spray 07/13/24 09:00 07/13/24 08:26 Fluticasone Propionate 0.05% Na Spr 16 Gm Btl (*Bkc) NASAL 2 spray DAILY GRAEME Administration Fluticasone/Umeclidinium/Vilanterol 1 puff 07/13/24 08:00 Fluticasone/Umeclidin/Vilanter 100-62.5-25 Mcg Ellipta INHALATION DAILYRT GRAEME Vancomycin HCl 1,500 mg in 500 mls @ 250 mls/hr 07/12/24 21:00 07/13/24 08:36 Vancomycin 1,500 Mg/Ns 500 Ml IVPB 250 mls/hr Q12H GRAEME Administration Clindamycin Phosphate 900 mg in 50 mls @ 50 mls/hr 07/12/24 14:00 07/13/24 06:09 Cleocin 900 Mg/D5w 50 Ml IVPB 50 mls/hr Q8H GRAEME Administration Meropenem 1 gm in 100 mls @ 200 mls/hr 07/12/24 13:00 07/13/24 05:01 IVPB 200 mls/hr Q8H GRAEME Administration Ibuprofen 400 mg 07/12/24 16:11 Ibuprofen 400 Mg Tablet PO Q6H PRN Pain Rated 1-3 Loratadine 10 mg 07/13/24 09:00 07/13/24 08:31 Loratadine 10 Mg Tablet PO 10 mg QAM GRAEME Administration Morphine Sulfate 4 mg 07/12/24 17:22 07/13/24 08:30 Morphine Sulfate (*Crx) 4 Mg/Ml Inj IV PUSH 4 mg Q4H PRN Administration Breakthrough Pain Ondansetron HCl 4 mg 07/12/24 12:58 07/12/24 16:30 Ondansetron Inj 4 Mg/2 Ml Vial IV PUSH 4 mg Q6H PRN Administration Nausea And Vomiting Oxycodone HCl 5 mg 07/12/24 17:24 07/13/24 06:08 Oxycodone Hcl (*Crx) 5 Mg Tab Ir PO 5 mg Q4H PRN Administration Pain Rated 4-6 Oxycodone HCl 10 mg 07/12/24 17:24 07/12/24 22:49 Oxycodone Hcl (*Crx) 5 Mg Tab Ir PO 10 mg Q4H PRN Administration Pain Rated 7-10 Polyethylene Glycol 17 gm 07/13/24 09:00 07/13/24 08:35 Polyethylene Glycol 3350 17 Gm Powd.Pack PO Not Given QAM GRAEME Polyethylene Glycol 17 gm 07/13/24 09:00 07/13/24 08:36 Polyethylene Glycol 3350 17 Gm Powd.Pack PO Not Given QAM GRAEME Senna/Docusate Sodium 2 tab 07/12/24 17:00 07/13/24 08:31 Senna/Docusate Sodium Tablet PO 2 tab BID GRAEME Administration Valacyclovir HCl 1,000 mg 07/12/24 16:11 07/13/24 08:31 Valacyclovir Hcl 500 Mg Tablet PO 1,000 mg TID PRN Administration cold sores Radiology Results: ITS Impressions Foot X-Ray 07/12/24 09:55 IMPRESSION: fracture in the area of the base of the distal phalanx of the left big toe which may be acute or chronic. Clinical correlation for tenderness in the area advised. Foot CT 07/12/24 13:08 IMPRESSION: 1. No radiopaque foreign body or acute fracture. Labs Labs: Laboratory Results - last 24 hr 07/13/24 07/13/24 05:38 05:40 WBC 11.5 H RBC 4.09 L Hgb 13.3 L Hct 39.4 L MCV 96.3 MCH 32.5 MCHC 33.8 RDW 12.6 Plt Count 246 MPV 11.0 H Immature Gran % (Auto) 0.3 Neut % (Auto) 88.3 H Lymph % (Auto) 5.9 L [place] % (Auto) 5.3 Eos % (Auto) 0.0 Baso % (Auto) 0.2 Lymph # (Auto) 0.67 L [place] # (Auto) 0.6 Eos # (Auto) 0.0 Baso # (Auto) 0.0 Abs Immat Gran (auto) 0.04 H Absolute Neuts (auto) 10.1 H Absolute Nucleated RBC 0.000 Nucleated RBC % 0.0 Sodium 136 L Potassium 4.0 Chloride 105 Carbon Dioxide 20 L Anion Gap 11 BUN 15 Creatinine 0.80 0.80 Estim Creat Clear Calc 77 77 Estimated GFR > 60 > 60 Glucose 134 H Calcium 8.8 Magnesium 2.0 Total Bilirubin 0.4 AST 26 ALT 26 Alkaline Phosphatase 61 Total Protein 7.0 Albumin 4.0 Quality VTE Prophylaxis VTE prophylaxis: pharmacologic ordered
[2024-07-13] MEDS: oxyCODONE HCL (*CRX) 5 MG TAB IR 10 MG PO (17:20)
[2024-07-13 20:24] LABS: Vancomycin Trough 14.1 ug/mL (10.0-20.0)
[2024-07-14] MEDS: ACETAMINOPHEN 500 MG TABLET 1000 MG PO ×4 (00:25→16:59)
[2024-07-14 00:34] VITALS: BP 118/63; PULSE 63; RESP 20; TEMP 36.9; O2SAT 95
[2024-07-14] MEDS: oxyCODONE HCL (*CRX) 5 MG TAB IR 10 MG PO ×2 (00:56→08:37)
[2024-07-14] MEDS: MEROPENEM 1 GM/NS 100 ML 1 GM/100 ML BAG IVPB (05:07)
[2024-07-14 05:10] VITALS: BP 130/54; PULSE 59; RESP 20; TEMP 36.6; O2SAT 98
[2024-07-14] MEDS: CLINDAMYCIN 900 MG/D5W 50 ML 900 MG/50 ML PIGGYBACK 50 MG IVPB (06:10)
[2024-07-14 06:40] LABS: Basophils Absolute Auto 0.1 K/mm3 (0.0-0.1); Basophils Percent Auto 0.6 % (0.2-1.2); Eosinophils Absolute Auto 0.1 K/mm3 (0-0.3); Eosinophils Percent Auto 1.1 % (0-4.4); Hematocrit 40.5 % (42.0-52.0); Hemoglobin 13.5 g/dL (14.0-18.0); Immature Granulocyte Absolute 0.04 K/mm3 (0.00-0.031); Immature Granulocyte Percent A 0.4 % (0-0.5); Lymphocytes Absolute Auto 1.43 K/mm3 (0.9-3.2); Lymphocytes Percent Auto 16.1 % (18.3-44.2); Mean Corpuscular HGB Conc 33.3 g/dl (32-36); Mean Corpuscular Hemoglobin 33.2 pg (26-34); Mean Corpuscular Volume 99.5 fl (80-100); Mean Platelet Volume 10.4 fl (7.4-10.4); Monocytes Absolute Auto 0.7 K/mm3 (0.1-0.6); Monocytes Percent Auto 7.6 % (2.6-8.5); Neutrophils Absolute Auto 6.6 K/mm3 (1.3-6.7); Neutrophils Percent Auto 74.2 % (45.5-73.1); Platelet Count Result 228 k/mm3 (150-375); Red Blood Count 4.07 M/mm3 (4.6-6.20); Red Cell Distribution Width 12.7 % (11.5-14.5); White Blood Count 8.9 K/mm3 (4.5-10.0)
[2024-07-14 06:58] LABS: Alanine Aminotransferase 24 U/L (6-50); Albumin Level 3.8 g/dL (3.5-5.1); Alkaline Phosphatase 57 U/L (38-126); Anion Gap 6 mmol/L (4-12); Aspartate Amino Transferase 22 U/L (17-59); Bilirubin,Total 0.5 mg/dL (0.2-1.3); Blood Urea Nitrogen 14 mg/dL (9-20); Calcium 8.8 mg/dL (8.4-10.2); Carbon Dioxide 27 mmol/L (22-30); Chloride 103 mmol/L (98-107); Estimated CRCL calculation 69 ml/min; Estimated Glomerular Filt Rate > 60; Glucose 84 mg/dL (65-110); Potassium 3.9 mmol/L (3.4-5.0); Sodium 136 mmol/L (137-145)
[2024-07-14] MEDS: FLUTICASONE/UMECLIDIN/VILANTER 100-62.5-25 MCG ELLIPTA 1 PUFF INHALATION (07:59)
[2024-07-14] MEDS: ENOXAPARIN 40 MG/0.4 ML SYRINGE SUB-Q (08:37)
[2024-07-14] MEDS: SENNA/DOCUSATE SODIUM TABLET 2 TAB PO ×2 (08:38→16:59)
[2024-07-14] MEDS: LORATADINE 10 MG TABLET PO (08:39)
[2024-07-14] MEDS: busPIRone HCL 10 MG TABLET PO (08:39)
[2024-07-14] MEDS: FLUTICASONE PROPIONATE 0.05% NA SPR 16 GM BTL (*BKC) 2 SPRAY NASAL (08:39)
[2024-07-14] MEDS: VANCOMYCIN 1,500 MG/NS 500 ML 1,500 MG/500 ML BAG 250 MG IVPB ×2 (10:46→21:49)
[2024-07-14] MEDS: MORPHINE SULFATE (*CRX) 4 MG/ML INJ IV PUSH (10:48)
--- NOTE | 2024-07-14 11:13 | P.PNIM_ITS ---
Progress Note: A&P Assessment and Plan (1) Necrotizing fasciitis: Code(s): M72.6 - Necrotizing fasciitis Status: Inactive Assessment and Plan: * Ortho consulted * Orthopedics concerned about necrotizing fasciitis and took patient emergently to OR 07/12/24. * Status post Incision and debridement of plantar medial and dorsal medial left great toe abscess and open wound packing 07/12/2024. Wound improving. * Pain control bowel protocol * Continue IV antibiotics * Meropenem and vancomycin * Blood cultures no growth to date. * Wound culture preliminary showed few gram + cocci and few Gram negative bacilli. * WBC improvin.4>11.5>8.9. * Monitor labs. (2) Puncture wound of foot: Qualifiers: Encounter type: initial encounter Laterality: left Qualified Code(s): S91.332A - Puncture wound without foreign body, left foot, initial encounter Code(s): S91.339A - Puncture wound without foreign body, unspecified foot, initial encounter Status: Acute Assessment and Plan: * Stepped on a nail left great toe * Tetanus received in 2021 * See above (3) Cellulitis: Qualifiers: Laterality: left Site of cellulitis: extremity Site of cellulitis of extremity: lower extremity Qualified Code(s): L03.116 - Cellulitis of left lower limb Code(s): L03.90 - Cellulitis, unspecified Status: Acute Assessment and Plan: * Secondary to above * Improving. Subjective Date/time seen: 07/14/24 11:13 Interval history: Patient reports pain in left toe is a 6 , constant, and aching. Patient denies chest pain, palpitations, headache, dizziness, nausea, or vomiting. Patient feels that redness has improved to left thigh. Review of Systems Review of Systems: All systems reviewed & are unremarkable except as noted in HPI and below Exam Const: General: no acute distress and uncomfortable Eyes: Sclera: sclerae normal Resp: Effort & Inspection: normal respiratory effort Auscultation: clear to auscultation bilaterally Cardio: Rate: regular rate Rhythm: regular rhythm GI: GI Palp: Yes Soft to palpation Auscultation: normal bowel sounds Skin: Other: Left great toe with scant serosanguineous drainage on dressing with erythema from I&D area. Redness fading in left thigh marked area. Left great toe tender to touch. Extrem: Other: Left great toe with scant serosanguineous drainage on dressing with erythema from I&D area. Redness fading in left thigh marked area. Left great toe tender to touch. Psych: Mental Status: mental status grossly normal Affect: normal affect Objective Data Vital Signs Vital Signs: Vital Signs - 24 hr 07/13/24 13:56 07/13/24 17:56 07/13/24 20:09 Temperature 97.9 F 97.2 F L Pulse Rate 60 55 L Respiratory Rate 18 18 Blood Pressure 114/57 L 107/68 Pulse Oximetry 99 95 Oxygen Delivery Room Air 07/13/24 21:39 07/14/24 00:34 07/13/24 21:52 Temperature 97.0 F L 98.5 F Pulse Rate 55 L 63 Respiratory Rate 16 20 Blood Pressure 120/72 118/63 Pulse Oximetry 95 95 95 Oxygen Delivery Room Air 07/14/24 05:10 07/14/24 07:31 Temperature 97.8 F Pulse Rate 59 L Respiratory Rate 20 Blood Pressure 130/54 L Pulse Oximetry 98 Oxygen Delivery Room Air Intake/Output Intake/Output: Intake & Output 07/11/24 07/12/24 07/13/24 07/14/24 23:59 23:59 23:59 23:59 Intake Total 1640 2995 1180 Balance 1640 2995 1180 Meds/Results Medications: Active Medications Generic Name Dose Route Start Last Admin Trade Name Freq PRN Reason Stop Dose Admin Acetaminophen 1,000 mg 07/12/24 18:00 07/14/24 06:10 Acetaminophen 500 Mg Tablet PO 1,000 mg Q6H GRAEME Administration Albuterol 2 puff 07/12/24 13:05 Albuterol Sulfate (*Sp) Aerosol 1 Puff INHALATION Q4-6H PRN Shortness Of Breath Or Wheezing Buspirone HCl 10 mg 07/13/24 09:00 07/14/24 08:39 Buspirone Hcl 10 Mg Tablet PO 10 mg DAILY GRAEME Administration Enoxaparin Sodium 40 mg 07/13/24 09:00 07/14/24 08:37 Enoxaparin 40 Mg/0.4 Ml Syringe SUB-Q 40 mg DAILY GRAEME Administration Fluticasone Propionate 2 spray 07/13/24 09:00 07/14/24 08:39 Fluticasone Propionate 0.05% Na Spr 16 Gm Btl (*Bkc) NASAL 2 spray DAILY GRAEME Administration Fluticasone/Umeclidinium/Vilanterol 1 puff 07/13/24 08:00 07/14/24 07:59 Fluticasone/Umeclidin/Vilanter 100-62.5-25 Mcg Ellipta INHALATION 1 puff DAILYRT GRAEME Administration Vancomycin HCl 1,500 mg in 500 mls @ 250 mls/hr 07/13/24 22:00 07/14/24 10:46 Vancomycin 1,500 Mg/Ns 500 Ml IVPB 250 mls/hr Q12H GRAEME Administration Cefepime HCl 2 gm in 50 mls @ 100 mls/hr 07/14/24 11:00 Maxipime 2 Gm/Ns 50 Ml IVPB Q12HR GRAEME Ibuprofen 400 mg 07/14/24 12:00 Ibuprofen 400 Mg Tablet PO Q6H GRAEME Loratadine 10 mg 07/13/24 09:00 07/13/24 08:31 Loratadine 10 Mg Tablet PO 10 mg QAM GRAEME Administration Morphine Sulfate 4 mg 07/12/24 17:22 07/14/24 10:48 Morphine Sulfate (*Crx) 4 Mg/Ml Inj IV PUSH 4 mg Q4H PRN Administration Breakthrough Pain Ondansetron HCl 4 mg 07/12/24 12:58 07/12/24 16:30 Ondansetron Inj 4 Mg/2 Ml Vial IV PUSH 4 mg Q6H PRN Administration Nausea And Vomiting Oxycodone HCl 5 mg 07/12/24 17:24 07/13/24 06:08 Oxycodone Hcl (*Crx) 5 Mg Tab Ir PO 5 mg Q4H PRN Administration Pain Rated 4-6 Oxycodone HCl 10 mg 07/12/24 17:24 07/14/24 08:37 Oxycodone Hcl (*Crx) 5 Mg Tab Ir PO 10 mg Q4H PRN Administration Pain Rated 7-10 Polyethylene Glycol 17 gm 07/13/24 09:00 07/13/24 08:35 Polyethylene Glycol 3350 17 Gm Powd.Pack PO Not Given QAM GRAEME Polyethylene Glycol 17 gm 07/13/24 09:00 07/13/24 08:36 Polyethylene Glycol 3350 17 Gm Powd.Pack PO Not Given QAM GRAEME Senna/Docusate Sodium 2 tab 07/12/24 17:00 07/14/24 08:38 Senna/Docusate Sodium Tablet PO 2 tab BID GRAEME Administration Valacyclovir HCl 1,000 mg 07/12/24 16:11 07/13/24 17:20 Valacyclovir Hcl 500 Mg Tablet PO 1,000 mg TID PRN Administration cold sores Radiology Results: ITS Impressions Foot X-Ray 07/12/24 09:55 IMPRESSION: fracture in the area of the base of the distal phalanx of the left big toe which may be acute or chronic. Clinical correlation for tenderness in the area advised. Foot CT 07/12/24 13:08 IMPRESSION: 1. No radiopaque foreign body or acute fracture. Labs Labs: Laboratory Results - last 24 hr 07/13/24 07/14/24 19:55 06:17 WBC 8.9 RBC 4.07 L Hgb 13.5 L Hct 40.5 L MCV 99.5 MCH 33.2 MCHC 33.3 RDW 12.7 Plt Count 228 MPV 10.4 Immature Gran % (Auto) 0.4 Neut % (Auto) 74.2 H Lymph % (Auto) 16.1 L [place] % (Auto) 7.6 Eos % (Auto) 1.1 Baso % (Auto) 0.6 Lymph # (Auto) 1.43 [place] # (Auto) 0.7 H Eos # (Auto) 0.1 Baso # (Auto) 0.1 Abs Immat Gran (auto) 0.04 H Absolute Neuts (auto) 6.6 Absolute Nucleated RBC 0.000 Nucleated RBC % 0.0 Sodium 136 L Potassium 3.9 Chloride 103 Carbon Dioxide 27 Anion Gap 6 BUN 14 Creatinine 0.90 Estim Creat Clear Calc 69 Estimated GFR > 60 Glucose 84 Calcium 8.8 Total Bilirubin 0.5 AST 22 ALT 24 Alkaline Phosphatase 57 Total Protein 7.0 Albumin 3.8 Vancomycin Trough 14.1 Quality VTE Prophylaxis VTE prophylaxis: pharmacologic ordered
[2024-07-14] MEDS: IBUPROFEN 400 MG TABLET 800 MG PO (12:18)
[2024-07-14] MEDS: CEFEPIME 2 GM/NS 50 ML 2 GM/50 ML BAG IVPB ×2 (13:00→20:58)
--- NOTE | 2024-07-14 13:55 | PM.PNORT ---
Progress Note: A&P Assessment and Plan (1) Abscess of left great toe: Code(s): L02.612 - Cutaneous abscess of left foot Status: Acute Assessment and Plan: Postop day 2 after incision and drainage of left great toe abscess due to 30 puncture wound from a nail on the floor of a chicken coop. He had a great deal of pain last night on the Tylenol and oxycodone. I have added ibuprofen this seems to be helping. The pain is all at the toe. Clinically the toe is little bit less swollen. He is still very tender. The exposed dermis in the anterior skin flap looks pink and viable. There has been no significant drainage. The erythema proximal to the toe is completely resolved including the erythema in the proximal medial thigh. The infectious disease pharmacist as recommend de escalation of the antibiotics cefepime, clindamycin and vancomycin now. The cultures are growing mixed bacterial anni without obvious pathogen as yet. Continue IV antibiotics awaiting cultures. (2) Puncture wound of foot: Qualifiers: Encounter type: initial encounter Laterality: left Qualified Code(s): S91.332A - Puncture wound without foreign body, left foot, initial encounter Code(s): S91.339A - Puncture wound without foreign body, unspecified foot, initial encounter Status: Acute Subjective Subjective Date/Time Seen: 07/14/24 13:55 Objective Data Vital Signs Vital Signs: Vital Signs - 24 hr 07/13/24 13:56 07/13/24 17:56 07/13/24 20:09 Temperature 36.6 C 36.2 C L Pulse Rate 60 55 L Respiratory Rate 18 18 Blood Pressure 114/57 L 107/68 Pulse Oximetry 99 95 Oxygen Delivery Room Air 07/13/24 21:39 07/14/24 00:34 07/13/24 21:52 Temperature 36.1 C L 36.9 C Pulse Rate 55 L 63 Respiratory Rate 16 20 Blood Pressure 120/72 118/63 Pulse Oximetry 95 95 95 Oxygen Delivery Room Air 07/14/24 05:10 07/14/24 07:31 Temperature 36.6 C Pulse Rate 59 L Respiratory Rate 20 Blood Pressure 130/54 L Pulse Oximetry 98 Oxygen Delivery Room Air Intake/Output Intake/Output: Intake & Output 07/11/24 07/12/24 07/13/24 07/14/24 23:59 23:59 23:59 23:59 Intake Total 1640 2995 1180 Balance 1640 2995 1180 Meds/Results Medications: Active Medications Generic Name Dose Route Start Last Admin Trade Name Freq PRN Reason Stop Dose Admin Acetaminophen 1,000 mg 07/12/24 18:00 07/14/24 12:19 Acetaminophen 500 Mg Tablet PO 1,000 mg Q6H GRAEME Administration Albuterol 2 puff 07/12/24 13:05 Albuterol Sulfate (*Sp) Aerosol 1 Puff INHALATION Q4-6H PRN Shortness Of Breath Or Wheezing Buspirone HCl 10 mg 07/13/24 09:00 07/14/24 08:39 Buspirone Hcl 10 Mg Tablet PO 10 mg DAILY GRAEME Administration Enoxaparin Sodium 40 mg 07/13/24 09:00 07/14/24 08:37 Enoxaparin 40 Mg/0.4 Ml Syringe SUB-Q 40 mg DAILY GRAEME Administration Fluticasone Propionate 2 spray 07/13/24 09:00 07/14/24 08:39 Fluticasone Propionate 0.05% Na Spr 16 Gm Btl (*Bkc) NASAL 2 spray DAILY GRAEME Administration Fluticasone/Umeclidinium/Vilanterol 1 puff 07/13/24 08:00 07/14/24 07:59 Fluticasone/Umeclidin/Vilanter 100-62.5-25 Mcg Ellipta INHALATION 1 puff DAILYRT GRAEME Administration Vancomycin HCl 1,500 mg in 500 mls @ 250 mls/hr 07/13/24 22:00 07/14/24 10:46 Vancomycin 1,500 Mg/Ns 500 Ml IVPB 250 mls/hr Q12H GRAEME Administration Cefepime HCl 2 gm in 50 mls @ 100 mls/hr 07/14/24 11:00 Maxipime 2 Gm/Ns 50 Ml IVPB Q12HR GRAEME Ibuprofen 600 mg 07/14/24 18:00 Ibuprofen 600 Mg Tablet PO Q6H GRAEME Loratadine 10 mg 07/13/24 09:00 07/13/24 08:31 Loratadine 10 Mg Tablet PO 10 mg QAM GRAEME Administration Morphine Sulfate 4 mg 07/12/24 17:22 07/14/24 10:48 Morphine Sulfate (*Crx) 4 Mg/Ml Inj IV PUSH 4 mg Q4H PRN Administration Breakthrough Pain Ondansetron HCl 4 mg 07/12/24 12:58 07/12/24 16:30 Ondansetron Inj 4 Mg/2 Ml Vial IV PUSH 4 mg Q6H PRN Administration Nausea And Vomiting Oxycodone HCl 5 mg 07/12/24 17:24 07/13/24 06:08 Oxycodone Hcl (*Crx) 5 Mg Tab Ir PO 5 mg Q4H PRN Administration Pain Rated 4-6 Oxycodone HCl 10 mg 07/12/24 17:24 07/14/24 08:37 Oxycodone Hcl (*Crx) 5 Mg Tab Ir PO 10 mg Q4H PRN Administration Pain Rated 7-10 Polyethylene Glycol 17 gm 07/13/24 09:00 07/13/24 08:35 Polyethylene Glycol 3350 17 Gm Powd.Pack PO Not Given QAM GRAEME Polyethylene Glycol 17 gm 07/13/24 09:00 07/13/24 08:36 Polyethylene Glycol 3350 17 Gm Powd.Pack PO Not Given QAM GRAEME Senna/Docusate Sodium 2 tab 07/12/24 17:00 07/14/24 08:38 Senna/Docusate Sodium Tablet PO 2 tab BID GRAEME Administration Valacyclovir HCl 1,000 mg 07/12/24 16:11 07/13/24 17:20 Valacyclovir Hcl 500 Mg Tablet PO 1,000 mg TID PRN Administration cold sores Radiology Results: ITS Impressions Foot X-Ray 07/12/24 09:55 IMPRESSION: fracture in the area of the base of the distal phalanx of the left big toe which may be acute or chronic. Clinical correlation for tenderness in the area advised. Foot CT 07/12/24 13:08 IMPRESSION: 1. No radiopaque foreign body or acute fracture. Labs Labs: Laboratory Results - last 24 hr 07/13/24 07/14/24 19:55 06:17 WBC 8.9 RBC 4.07 L Hgb 13.5 L Hct 40.5 L MCV 99.5 MCH 33.2 MCHC 33.3 RDW 12.7 Plt Count 228 MPV 10.4 Immature Gran % (Auto) 0.4 Neut % (Auto) 74.2 H Lymph % (Auto) 16.1 L [place] % (Auto) 7.6 Eos % (Auto) 1.1 Baso % (Auto) 0.6 Lymph # (Auto) 1.43 [place] # (Auto) 0.7 H Eos # (Auto) 0.1 Baso # (Auto) 0.1 Abs Immat Gran (auto) 0.04 H Absolute Neuts (auto) 6.6 Absolute Nucleated RBC 0.000 Nucleated RBC % 0.0 Sodium 136 L Potassium 3.9 Chloride 103 Carbon Dioxide 27 Anion Gap 6 BUN 14 Creatinine 0.90 Estim Creat Clear Calc 69 Estimated GFR > 60 Glucose 84 Calcium 8.8 Total Bilirubin 0.5 AST 22 ALT 24 Alkaline Phosphatase 57 Total Protein 7.0 Albumin 3.8 Vancomycin Trough 14.1
--- NOTE | 2024-07-14 14:08 | P.PNOP_ITS ---
Subjective Subjective Date/Time Seen: 07/14/24 14:08 Objective Data Vital Signs Vital Signs: Vital Signs - 24 hr 07/13/24 17:56 07/13/24 20:09 07/13/24 21:39 Temperature 36.2 C L 36.1 C L Pulse Rate 55 L 55 L Respiratory Rate 18 16 Blood Pressure 107/68 120/72 Pulse Oximetry 95 95 Oxygen Delivery Room Air 07/14/24 00:34 07/13/24 21:52 07/14/24 05:10 Temperature 36.9 C 36.6 C Pulse Rate 63 59 L Respiratory Rate 20 20 Blood Pressure 118/63 130/54 L Pulse Oximetry 95 95 98 Oxygen Delivery Room Air 07/14/24 07:31 Temperature Pulse Rate Respiratory Rate Blood Pressure Pulse Oximetry Oxygen Delivery Room Air Intake/Output Intake/Output: Intake & Output 07/11/24 07/12/24 07/13/24 07/14/24 23:59 23:59 23:59 23:59 Intake Total 1640 2995 1180 Balance 1640 2995 1180 Meds/Results Medications: Active Medications Generic Name Dose Route Start Last Admin Trade Name Freq PRN Reason Stop Dose Admin Acetaminophen 1,000 mg 07/12/24 18:00 07/14/24 12:19 Acetaminophen 500 Mg Tablet PO 1,000 mg Q6H GRAEME Administration Albuterol 2 puff 07/12/24 13:05 Albuterol Sulfate (*Sp) Aerosol 1 Puff INHALATION Q4-6H PRN Shortness Of Breath Or Wheezing Buspirone HCl 10 mg 07/13/24 09:00 07/14/24 08:39 Buspirone Hcl 10 Mg Tablet PO 10 mg DAILY GRAEME Administration Enoxaparin Sodium 40 mg 07/13/24 09:00 07/14/24 08:37 Enoxaparin 40 Mg/0.4 Ml Syringe SUB-Q 40 mg DAILY GRAEME Administration Fluticasone Propionate 2 spray 07/13/24 09:00 07/14/24 08:39 Fluticasone Propionate 0.05% Na Spr 16 Gm Btl (*Bkc) NASAL 2 spray DAILY GRAEME Administration Fluticasone/Umeclidinium/Vilanterol 1 puff 07/13/24 08:00 07/14/24 07:59 Fluticasone/Umeclidin/Vilanter 100-62.5-25 Mcg Ellipta INHALATION 1 puff DAILYRT GRAEME Administration Vancomycin HCl 1,500 mg in 500 mls @ 250 mls/hr 07/13/24 22:00 07/14/24 10:46 Vancomycin 1,500 Mg/Ns 500 Ml IVPB 250 mls/hr Q12H GRAEME Administration Cefepime HCl 2 gm in 50 mls @ 100 mls/hr 07/14/24 11:00 Maxipime 2 Gm/Ns 50 Ml IVPB Q12HR [facility] Ibuprofen 600 mg 07/14/24 18:00 Ibuprofen 600 Mg Tablet PO Q6H GRAEME Loratadine 10 mg 07/13/24 09:00 07/13/24 08:31 Loratadine 10 Mg Tablet PO 10 mg QAM GRAEME Administration Morphine Sulfate 4 mg 07/12/24 17:22 07/14/24 10:48 Morphine Sulfate (*Crx) 4 Mg/Ml Inj IV PUSH 4 mg Q4H PRN Administration Breakthrough Pain Ondansetron HCl 4 mg 07/12/24 12:58 07/12/24 16:30 Ondansetron Inj 4 Mg/2 Ml Vial IV PUSH 4 mg Q6H PRN Administration Nausea And Vomiting Oxycodone HCl 5 mg 07/12/24 17:24 07/13/24 06:08 Oxycodone Hcl (*Crx) 5 Mg Tab Ir PO 5 mg Q4H PRN Administration Pain Rated 4-6 Oxycodone HCl 10 mg 07/12/24 17:24 07/14/24 08:37 Oxycodone Hcl (*Crx) 5 Mg Tab Ir PO 10 mg Q4H PRN Administration Pain Rated 7-10 Polyethylene Glycol 17 gm 07/13/24 09:00 07/13/24 08:35 Polyethylene Glycol 3350 17 Gm Powd.Pack PO Not Given QAM GRAEME Polyethylene Glycol 17 gm 07/13/24 09:00 07/13/24 08:36 Polyethylene Glycol 3350 17 Gm Powd.Pack PO Not Given QAM GRAEME Senna/Docusate Sodium 2 tab 07/12/24 17:00 07/14/24 08:38 Senna/Docusate Sodium Tablet PO 2 tab BID GRAEME Administration Valacyclovir HCl 1,000 mg 07/12/24 16:11 07/13/24 17:20 Valacyclovir Hcl 500 Mg Tablet PO 1,000 mg TID PRN Administration cold sores Radiology Results: ITS Impressions Foot X-Ray 07/12/24 09:55 IMPRESSION: fracture in the area of the base of the distal phalanx of the left big toe which may be acute or chronic. Clinical correlation for tenderness in the area advised. Foot CT 07/12/24 13:08 IMPRESSION: 1. No radiopaque foreign body or acute fracture. Labs Labs: Laboratory Results - last 24 hr 07/13/24 07/14/24 19:55 06:17 WBC 8.9 RBC 4.07 L Hgb 13.5 L Hct 40.5 L MCV 99.5 MCH 33.2 MCHC 33.3 RDW 12.7 Plt Count 228 MPV 10.4 Immature Gran % (Auto) 0.4 Neut % (Auto) 74.2 H Lymph % (Auto) 16.1 L [place] % (Auto) 7.6 Eos % (Auto) 1.1 Baso % (Auto) 0.6 Lymph # (Auto) 1.43 [place] # (Auto) 0.7 H Eos # (Auto) 0.1 Baso # (Auto) 0.1 Abs Immat Gran (auto) 0.04 H Absolute Neuts (auto) 6.6 Absolute Nucleated RBC 0.000 Nucleated RBC % 0.0 Sodium 136 L Potassium 3.9 Chloride 103 Carbon Dioxide 27 Anion Gap 6 BUN 14 Creatinine 0.90 Estim Creat Clear Calc 69 Estimated GFR > 60 Glucose 84 Calcium 8.8 Total Bilirubin 0.5 AST 22 ALT 24 Alkaline Phosphatase 57 Total Protein 7.0 Albumin 3.8 Vancomycin Trough 14.1
[2024-07-14] MEDS: SACCHAROMYCES BOULARDII 250 MG CAPSULE PO (16:59)
[2024-07-14 20:23] VITALS: BP 130/77; PULSE 65; RESP 16; TEMP 36.6; O2SAT 95
[2024-07-14] MEDS: IBUPROFEN 600 MG TABLET PO (20:57)
[2024-07-15 00:26] VITALS: BP 132/74; PULSE 72; RESP 16; TEMP 36.8; O2SAT 98
[2024-07-15] MEDS: oxyCODONE HCL (*CRX) 5 MG TAB IR PO (00:28)
[2024-07-15] MEDS: ACETAMINOPHEN 500 MG TABLET 1000 MG PO ×3 (00:28→11:48)
[2024-07-15] MEDS: IBUPROFEN 600 MG TABLET PO ×2 (03:01→08:39)
[2024-07-15] MEDS: CYCLOBENZAPRINE HCL 5 MG TABLET PO (03:01)
[2024-07-15 03:19] VITALS: BP 156/86; PULSE 66; RESP 18; TEMP 36.3; O2SAT 96
[2024-07-15 06:50] LABS: Basophils Absolute Auto 0.1 K/mm3 (0.0-0.1); Basophils Percent Auto 0.6 % (0.2-1.2); Eosinophils Absolute Auto 0.2 K/mm3 (0-0.3); Hematocrit 39.1 % (42.0-52.0); Hemoglobin 13.4 g/dL (14.0-18.0); Immature Granulocyte Absolute 0.03 K/mm3 (0.00-0.031); Immature Granulocyte Percent A 0.4 % (0-0.5); Lymphocytes Absolute Auto 1.05 K/mm3 (0.9-3.2); Lymphocytes Percent Auto 13.1 % (18.3-44.2); Mean Corpuscular HGB Conc 34.3 g/dl (32-36); Mean Corpuscular Hemoglobin 32.8 pg (26-34); Mean Corpuscular Volume 95.8 fl (80-100); Mean Platelet Volume 10.2 fl (7.4-10.4); Monocytes Absolute Auto 0.7 K/mm3 (0.1-0.6); Neutrophils Percent Auto 74.9 % (45.5-73.1); Platelet Count Result 233 k/mm3 (150-375); Red Blood Count 4.08 M/mm3 (4.6-6.20); Red Cell Distribution Width 12.2 % (11.5-14.5)
[2024-07-15 07:06] LABS: Alanine Aminotransferase 22 U/L (6-50); Albumin Level 3.7 g/dL (3.5-5.1); Alkaline Phosphatase 63 U/L (38-126); Anion Gap 4 mmol/L (4-12); Aspartate Amino Transferase 25 U/L (17-59); Bilirubin,Total 0.6 mg/dL (0.2-1.3); Blood Urea Nitrogen 13 mg/dL (9-20); Calcium 8.9 mg/dL (8.4-10.2); Carbon Dioxide 28 mmol/L (22-30); Chloride 102 mmol/L (98-107); Estimated CRCL calculation 77 ml/min; Estimated Glomerular Filt Rate > 60; Glucose 86 mg/dL (65-110); Potassium 3.9 mmol/L (3.4-5.0); Sodium 134 mmol/L (137-145)
[2024-07-15] MEDS: CEFEPIME 2 GM/NS 50 ML 2 GM/50 ML BAG IVPB (08:37)
[2024-07-15] MEDS: SACCHAROMYCES BOULARDII 250 MG CAPSULE PO (08:38)
[2024-07-15] MEDS: SENNA/DOCUSATE SODIUM TABLET 2 TAB PO (08:38)
[2024-07-15] MEDS: LORATADINE 10 MG TABLET PO (08:38)
[2024-07-15] MEDS: busPIRone HCL 10 MG TABLET PO (08:39)
[2024-07-15] MEDS: polyethylene glycoL 3350 17 GM POWD.PACK PO (08:39)
[2024-07-15] MEDS: oxyCODONE HCL (*CRX) 5 MG TAB IR 10 MG PO ×2 (08:42→17:32)
[2024-07-15] MEDS: FLUTICASONE PROPIONATE 0.05% NA SPR 16 GM BTL (*BKC) 2 SPRAY NASAL (09:15)
[2024-07-15 09:19] VITALS: PULSE 72; RESP 20
[2024-07-15 09:21] VITALS: O2SAT 93
--- NOTE | 2024-07-15 11:19 | PM.PNORT ---
Progress Note: A&P Assessment and Plan (1) Abscess of left great toe: Code(s): L02.612 - Cutaneous abscess of left foot Status: Acute Assessment and Plan: Patient slept much better last night and much better pain control on the ibuprofen. Today he is able to wiggle the great toe up and down at the MP joint without pain. All of the erythema in his calf and thigh is resolved completely and now there is no sensitivity in the proximal medial thigh where he had the erythema. His white count remains normal at 8.0. The toe wound itself has sealed over and the exposed dermis where he had epidermal lysis is now covered with a healthy appearing scab. There is just mild erythema and mild swelling in the IP joint reason of the great toe. He still has moderate tenderness over the dorsal and plantar aspects of the puncture wound where he had the abscess. From a clinical standpoint he has responded well and I think it would be appropriate to switch him to oral antibiotics now. I have been unable to reach the infectious disease pharmacist today at his office or on cell phone and I understand he is at [facility] [place]. I have discussed the case with the hospitalist and he is going to verify that it would be reasonable to utilize oral clindamycin 300 mg every 6 hours and doxycycline which I would think would give the best broad-spectrum coverage using the clindamycin to cover anaerobic bacteria which are prevalent concern him in a barn yd nail and the doxycycline should give broad spectrum coverage for Gram-negative bacteria and Gram-positive bacteria including MRSA in most cases. His cultures have not grown any specific pathogen. Certainly he had a severe infection with rapidly developing cellulitis at presentation but he had received several antibiotics before the cultures were obtained and I think these antibiotics of suppressed growth so we may never know which pathogens specifically were cause the infection hence the need for broad-spectrum coverage. I would recommend 2 weeks of oral antibiotics to start with and this may need to be continued further depending on his clinical response. If hospitalist feels he is okay to go home he is okay from my standpoint as well. 35 minutes were spent in total care this patient most of this time spent in phone calls and discharge planning. Subjective Subjective Date/Time Seen: 07/15/24 11:19 Objective Data Vital Signs Vital Signs: Vital Signs - 24 hr 07/14/24 20:23 07/14/24 20:00 07/15/24 00:26 Temperature 36.6 C 36.8 C Pulse Rate 65 72 Respiratory Rate 16 16 Blood Pressure 130/77 132/74 Pulse Oximetry 95 98 Oxygen Delivery Room Air 07/15/24 03:19 07/15/24 09:19 07/15/24 09:21 Temperature 36.3 C L Pulse Rate 66 72 Respiratory Rate 18 20 Blood Pressure 156/86 H Pulse Oximetry 96 93 Oxygen Delivery Room Air Intake/Output Intake/Output: Intake & Output 07/12/24 07/13/24 07/14/24 07/15/24 23:59 23:59 23:59 23:59 Intake Total 1640 2995 3450 790 Balance 1640 2995 3450 790 Meds/Results Medications: Active Medications Generic Name Dose Route Start Last Admin Trade Name Freq PRN Reason Stop Dose Admin Acetaminophen 1,000 mg 07/12/24 18:00 07/15/24 06:32 Acetaminophen 500 Mg Tablet PO 1,000 mg Q6H GRAEME Administration Albuterol 2 puff 07/12/24 13:05 Albuterol Sulfate (*Sp) Aerosol 1 Puff INHALATION Q4-6H PRN Shortness Of Breath Or Wheezing Buspirone HCl 10 mg 07/13/24 09:00 07/15/24 08:39 Buspirone Hcl 10 Mg Tablet PO 10 mg DAILY GRAEME Administration Enoxaparin Sodium 40 mg 07/13/24 09:00 07/14/24 08:37 Enoxaparin 40 Mg/0.4 Ml Syringe SUB-Q 40 mg DAILY GRAEME Administration Fluticasone Propionate 2 spray 07/13/24 09:00 07/14/24 08:39 Fluticasone Propionate 0.05% Na Spr 16 Gm Btl (*Bkc) NASAL 2 spray DAILY GRAEME Administration Fluticasone/Umeclidinium/Vilanterol 1 puff 07/13/24 08:00 07/15/24 09:18 Fluticasone/Umeclidin/Vilanter 100-62.5-25 Mcg Ellipta INHALATION Not Given DAILYRT GRAEME Cefepime HCl 2 gm in 50 mls @ 100 mls/hr 07/14/24 11:00 07/15/24 08:37 Maxipime 2 Gm/Ns 50 Ml IVPB 100 mls/hr Q12HR GRAEME Administration Vancomycin HCl 1,750 mg in 500 mls @ 250 mls/hr 07/15/24 11:00 Vancomycin 1,750 Mg/Ns 500 Ml IVPB Q12H GRAEME Ibuprofen 600 mg 07/14/24 21:00 07/15/24 08:39 Ibuprofen 600 Mg Tablet PO 600 mg Q6H GRAEME Administration Loratadine 10 mg 07/13/24 09:00 07/15/24 08:38 Loratadine 10 Mg Tablet PO 10 mg QAM GRAEME Administration Morphine Sulfate 4 mg 07/12/24 17:22 07/14/24 10:48 Morphine Sulfate (*Crx) 4 Mg/Ml Inj IV PUSH 4 mg Q4H PRN Administration Breakthrough Pain Ondansetron HCl 4 mg 07/12/24 12:58 07/12/24 16:30 Ondansetron Inj 4 Mg/2 Ml Vial IV PUSH 4 mg Q6H PRN Administration Nausea And Vomiting Oxycodone HCl 5 mg 07/12/24 17:24 07/15/24 00:28 Oxycodone Hcl (*Crx) 5 Mg Tab Ir PO 5 mg Q4H PRN Administration Pain Rated 4-6 Oxycodone HCl 10 mg 07/12/24 17:24 07/15/24 08:42 Oxycodone Hcl (*Crx) 5 Mg Tab Ir PO 10 mg Q4H PRN Administration Pain Rated 7-10 Polyethylene Glycol 17 gm 07/13/24 09:00 07/15/24 08:39 Polyethylene Glycol 3350 17 Gm Powd.Pack PO 17 gm QAM GRAEME Administration Saccharomyces Boulardii 250 mg 07/14/24 17:00 07/15/24 08:38 Saccharomyces Boulardii 250 Mg Capsule PO 250 mg TID [facility] Administration Senna/Docusate Sodium 2 tab 07/12/24 17:00 07/15/24 08:38 Senna/Docusate Sodium Tablet PO 2 tab BID GRAEME Administration Valacyclovir HCl 1,000 mg 07/12/24 16:11 07/13/24 17:20 Valacyclovir Hcl 500 Mg Tablet PO 1,000 mg TID PRN Administration cold sores Radiology Results: ITS Impressions Foot X-Ray 07/12/24 09:55 IMPRESSION: fracture in the area of the base of the distal phalanx of the left big toe which may be acute or chronic. Clinical correlation for tenderness in the area advised. Foot CT 07/12/24 13:08 IMPRESSION: 1. No radiopaque foreign body or acute fracture. Labs Labs: Laboratory Results - last 24 hr 07/15/24 07/15/24 06:37 09:01 WBC 8.0 RBC 4.08 L Hgb 13.4 L Hct 39.1 L MCV 95.8 MCH 32.8 MCHC 34.3 RDW 12.2 Plt Count 233 MPV 10.2 Immature Gran % (Auto) 0.4 Neut % (Auto) 74.9 H Lymph % (Auto) 13.1 L [place] % (Auto) 9.0 H Eos % (Auto) 2.0 Baso % (Auto) 0.6 Lymph # (Auto) 1.05 [place] # (Auto) 0.7 H Eos # (Auto) 0.2 Baso # (Auto) 0.1 Abs Immat Gran (auto) 0.03 Absolute Neuts (auto) 6.0 Absolute Nucleated RBC 0.000 Nucleated RBC % 0.0 Sodium 134 L Potassium 3.9 Chloride 102 Carbon Dioxide 28 Anion Gap 4 BUN 13 Creatinine 0.80 Estim Creat Clear Calc 77 Estimated GFR > 60 Glucose 86 Calcium 8.9 Total Bilirubin 0.6 AST 25 ALT 22 Alkaline Phosphatase 63 Total Protein 7.0 Albumin 3.7 Vancomycin Trough 13.0
[2024-07-15] MEDS: ENOXAPARIN 40 MG/0.4 ML SYRINGE SUB-Q (11:48)
[2024-07-15] MEDS: VANCOMYCIN 1,750 MG/NS 500 ML 1,750 MG/500 ML BAG 250 MG IVPB (11:50)
--- NOTE | 2024-07-15 15:37 | P.DS_ITS ---
DS: Admitting Diagnosis Discharge Date 07/15/2024 Admitting Diagnosis Necrotizing Fasciitis DS: Discharge Diagnosis Discharge Diagnosis (1) Necrotizing fasciitis: Code(s): M72.6 - Necrotizing fasciitis Status: Inactive Assessment and Plan: * Seen by Ortho and underwent Incision and debridement of plantar medial and dorsal medial left great toe abscess. * Orthopedics concerned about necrotizing fasciitis and took patient emergently to OR 07/12/24. * Wound with surgical dressing and well improving per Ortho. * Treated with IV Cefepime and Vancomycin inpatient. * Antibiotics changed to PO Augmentin and Doxycycline prior to discharge per ID pharmacist recommendations. * Pain well controlled. * Blood cultures no growth to date. * Wound culture preliminary growing few gram +ve cocci and few Gram +ve bacilli. * WBC improvin.4>11.5>8.9>>8.0 * Patient to be discharged and f/u with Ortho outpatient. (2) Puncture wound of foot: Qualifiers: Encounter type: initial encounter Laterality: left Qualified Code(s): S91.332A - Puncture wound without foreign body, left foot, initial encounter Code(s): S91.339A - Puncture wound without foreign body, unspecified foot, initial encounter Status: Acute Assessment and Plan: * Stepped on a nail left great toe. * Tetanus received in 2021. * Mgt as above # 1 (3) Cellulitis: Qualifiers: Laterality: left Site of cellulitis: extremity Site of cellulitis of extremity: lower extremity Qualified Code(s): L03.116 - Cellulitis of left lower limb Code(s): L03.90 - Cellulitis, unspecified Status: Acute Assessment and Plan: * Secondary to # 3 above * Improving. * Treated with IV Vancomycin and Cefepime inpatient. * Discharged with PO Augmentin and Doxycycline per ID pharmacist recommendations. (4) Anxiety: Code(s): F41.9 - Anxiety disorder, unspecified Status: Acute Assessment and Plan: - Resume Buspar at home Plan Discharge Home. DS: Summary Hospital Course Reason for hospitalization: Necrotizing Fasciitis. Hospital Course: Patient presented to the ER after accidentally stepping on a nail at his chicken coop at home the day before he presented. He presented with severe redness and pain to his left great toe and leg. Patient reported pain that progressively got worse throughout the night, and when he woke up in the morning he had a red streak all the way up to his groin. He was worried about infection and possible sepsis so he came to the hospital for evaluation. Patient had an X-Ray done to his Left Foot that showed: fracture in the area of the base of the distal phalanx of the left big toe which may be acute or chronic. Clinical correlation for tenderness in the area advised. Orthopedic surgeon was consulted and after evaluating patient, surgical intervention was recommended. Patient underwent Incision and debridement of plantar medial and dorsal medial left great toe abscess and open wound packing. Patient's wound has been managed by the orthopedic surgeon and is progressing well. Patient was also treated with broad- spectrum IV antibiotics and that have been converted to oral with the assistance of ID Pharmacist. Patient's blood cultures were NGTD and wound-cultures grew few gram +ve cocci and few Gram +ve bacilli. Patient reports pain is controlled and has been cleared for discharge by Ortho. Pt also reports he's ready to go home and has no distressful symptoms. No acute distress noted or reported prior to discharge and patient is medically stable to go home. Status at Discharge Functional status at discharge: independent ambulation Overall status at discharge: patient is progressing back to baseline Time Spent with Patient Time attestation: Total time spent providing and/or coordinating discharge services: Time spent: Greater than 30 minutes Exam Narrative: General: well appearing, appears stated age. HEENT: normocephalic, atraumatic. Mucous membranes moist. EOMI, PERRLA, bilateral sclera anicteric. Neck supple. Respiratory: clear to ascultation bilaterally. Cardiovascular: Regular rate and rhythm. No murmurs. Abdomen: Soft, round, nondistended and nontender. Bowel sounds present to all four quadrants. Extremities: No cyanosis, clubbing, or edema present. Pulses are palpable 2/2. Clean, dry and intact surgical dressing to Left Foot. Neuro: Alert and orientated x 4. Cranial nerves 2-12 intact without focal deficit. Skin: Warm, dry, and intact, without rash, erythema, or lesion. Dry and intact dressing to Left Foot. Psych: pleasant and cooperative. DS: Data Data Completed and Pending Labs on day of discharge: Labs from last 24 hours 07/15/24 07/15/24 09:01 06:37 WBC 8.0 RBC 4.08 L Hgb 13.4 L Hct 39.1 L MCV 95.8 MCH 32.8 MCHC 34.3 RDW 12.2 Plt Count 233 MPV 10.2 Immature Gran % (Auto) 0.4 Neut % (Auto) 74.9 H Lymph % (Auto) 13.1 L Cascade % (Auto) 9.0 H Eos % (Auto) 2.0 Baso % (Auto) 0.6 Lymph # (Auto) 1.05 Cascade # (Auto) 0.7 H Eos # (Auto) 0.2 Baso # (Auto) 0.1 Abs Immat Gran (auto) 0.03 Absolute Neuts (auto) 6.0 Absolute Nucleated RBC 0.000 Nucleated RBC % 0.0 Sodium 134 L Potassium 3.9 Chloride 102 Carbon Dioxide 28 Anion Gap 4 BUN 13 Creatinine 0.80 Estim Creat Clear Calc 77 Estimated GFR > 60 Glucose 86 Calcium 8.9 Total Bilirubin 0.6 AST 25 ALT 22 Alkaline Phosphatase 63 Total Protein 7.0 Albumin 3.7 Vancomycin Trough 13.0 Preliminary micro results at discharge 07/12/24 14:16 Anaerobic Culture - Preliminary Toe Left Great 07/12/24 14:16 Anaerobic Culture - Preliminary Toe Left Great 07/12/24 14:02 Anaerobic Culture - Preliminary Toe Left Great 07/12/24 07:50 Blood Culture - Preliminary Blood 07/12/24 08:03 Blood Culture - Preliminary Blood Discharge Plan Discharge Attending physician on discharge: Uli Logan Consulting providers: Jayden Nguyen Discharging Clinician: Isrrael Tatum Anticipated Discharge Date/Time: 07/15/24 16:08 Patient Disposition: Home, Self-Care Activity: as tolerated Diet: as tolerated Discharge Instructions: Wear post op shoe when out of bed. If you develop diarrhea, you will need to have your stool analyzed for c.diff toxin which is a complication which can occur usinf antibiotics. If pain swelling redness recur, return to ER. Take the miralax and pericolace as ordered untill you are off the narcotics. Follow up with DR Nguyen in 2 weeks. Call [phone] for appt. keep wound covered with extra large bandaid to keep fabrics/shoe from rubbing on it. Change it daily. Patient Instructions: Antibiotic Form Stand Alone Forms: General Discharge Information Follow-up/Referrals: Tim Alanis MD [Primary Care Provider] - 1 Week Jayden Nguyen MD [Physician] - 2 Weeks Discharge Medications: New oxycodone 5 mg Tablet 10 mg PO Q4H PRN (Reason: Pain Rated 7-10) Qty: 40 0RF acetaminophen 500 mg Tablet 1,000 mg PO .q8 Qty: 120 0RF sennosides-docusate sodium [Senokot-S] 8.6-50 mg Tablet 2 tab-cap PO BID Qty: 120 0RF ibuprofen 600 mg Tablet 600 mg PO Q6H PRN (Reason: pain) Qty: 90 0RF doxycycline hyclate 100 mg Tablet 100 mg PO Q12HR Qty: 28 0RF polyethylene glycol 3350 [Miralax] 17 gram Powder In Packet 17 g PO QAM Qty: 30 0RF amoxicillin-pot clavulanate 875-125 mg tablet 1 tablet PO Q8H Qty: 42 0RF Rx Instructions: 875/125 dose please Continued buspirone 10 mg tablet 10 mg PO DAILY Rx Instructions: Please D/C the Buspirone 5mg. Thank you valacyclovir 1 gram tablet 1,000 mg PO TID PRN (Reason: cold sores) Patient Comments: TAKES PRN Trelegy Ellipta 100-62.5-25 mcg blister with device 1 inh inhalation DAILY Qty: 180 2RF fluticasone propionate 50 mcg/actuation spray,suspension 2 spray intranasal DAILY Qty: 16 0RF Rx Instructions: USE 2 SPRAYS IN EACH NOSTRIL DAILY cetirizine [Zyrtec] 10 mg Tablet 10 mg PO DAILY albuterol sulfate 90 mcg/actuation HFA aerosol inhaler 2 puff inhalation Q4-6H PRN (Reason: Shortness Of Breath Or Wheezing) Rx Instructions: USE 2 INHALATIONS EVERY 4 TO 6 HOURS NEEDED FOR SHORTNESS OF BREATH OR WHEEZING Date of admission: 07/13/24 10:57 Primary Care Provider: Tim Alanis Admitting Provider: Jeramie Torre Attending physician on admission: Jeramie Torre Condition: Stable Quality If No VTE Prophylaxis Answer both mechanical and pharmacologic: Reason no mechanical VTE proph: low risk/not indicated Reason no pharmacologic proph: low risk/not indicated Hospitalist MIPS Heart Failure (Exclusion) Patient has history of Heart Transplant or Left Ventricular Assistive Device?: No IF YES, STOP HERE Heart Failure (Qualifier) Patient has current or prior documentation of LVEF less than or equal to 40%, or mod/servere depressed LVSF?: No IF NO, STOP HERE
== END 2024-07-15 17:35 | disposition home or self-care (01) | DRG 602 ==
LOC: ANHED 09:09 → ANH3MEDSUR 09:34
PROVIDERS: Nurse Practitioner Family; Orthopaedic Surgery; Admitting Provider General Practice; Emergency Provider Emergency Medicine; PCP Internal Medicine; Visit Provider Nurse Practitioner Adult Health
PROC: 0HDNXZZ Extraction of Left Foot Skin, External Approach (ICD-10-PCS; principal; 2024-07-12 13:30)
DX: L03.116 Cellulitis of left lower limb (principal); M72.6 Necrotizing fasciitis; S92.532K Displaced fracture of distal phalanx of left lesser toe(s), subsequent encounter for fracture with nonunion; L02.612 Cutaneous abscess of left foot; S91.332A Puncture wound without foreign body, left foot, initial encounter; E78.5 Hyperlipidemia, unspecified; M54.50 Low back pain, unspecified; M54.16 Radiculopathy, lumbar region; M25.552 Pain in left hip; G89.29 Other chronic pain; F41.9 Anxiety disorder, unspecified; W22.8XXA Striking against or struck by other objects, initial encounter; Z96.652 Presence of left artificial knee joint
CPT/HCPCS: 36415; 73630; 73700; 80053; 80202; 82565; 83605; 83735; 84145; 85025; 85652; 86140; 87040; 87070; 87075; 87205; 90715; 94640; 96365; 96367; 96375; 97161; 99285; A9270; G0378; J0330; J0692; J0744; J1100; J1171; J1650; J1741; J2003; J2185; J2250; J2270; J2405; J2704; J3010; J3370; J7030; J7120

== ENCOUNTER 2025-04-24 09:56 | Outpatient (CLI) | payer OTHER, SELFPAY ==
--- NOTE | ~2025-04-24 | XR_ITS ---
EXAM/PROCEDURE: XR chest 2V - 04/24/2025 10:05 CDT HISTORY: 65 years old Male with R05.9 - Cough, unspecified TECHNIQUE: Two view(s) of the chest. COMPARISON: None available. FINDINGS: LUNGS/ PLEURA: No focal consolidation. No appreciable pneumothorax or large pleural effusion. HEART/ MEDIASTINUM: Heart appears normal in size. BONES: No acute osseous abnormality. OTHER: Visualized upper abdomen is unremarkable. IMPRESSION: No acute process. Reviewed, dictated and finalized at location A. IMPRESSION: No acute process.
[2025-04-24 10:37] LABS: Hematocrit 42.3 % (42.0-52.0); Hemoglobin 14.3 g/dL (14.0-18.0); Immature Granulocyte Percent A 0.5 % (0-0.5); Lymphocytes Absolute Auto 1.53 K/mm3 (0.9-3.2); Mean Corpuscular HGB Conc 33.8 g/dl (32-36); Mean Corpuscular Hemoglobin 31.8 pg (26-34); Mean Corpuscular Volume 94.2 fl (80-100); Nucleated Red Blood Cells Absolute Auto 0.000 K/mm3 (0.0-0.012); Nucleated Red Blood Cells Perc 0.0 % (0.0-0.2); Platelet Count Result 280 k/mm3 (150-375); Red Blood Count 4.49 M/mm3 (4.6-6.20); White Blood Count 7.9 K/mm3 (4.5-10.0)
--- OUTSIDE RECORDS SUMMARY | 2025-04-24 10:47 | XMS_ITS | Clinical Summary ---
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 Name Role Phone Unavailable Primary Care Provider Unavailabl e Social History Tobacco Use Types Packs/Day Years Used Date Smoking Tobacco: Never Assessed Sex and Gender Information Value Date Recorded Sex Assigned at Not on file Legal Sex Male 6:05 PM CDT Gender Identity Not on file Sexual Orientation Not on file Plan of Treatment Health Maintenance Due Date Last Done Comments Colorectal Cancer Screening Colonoscopy (10 Years) 1961 Annual Physical 02/24/1964 Hepatitis C 1979 DTaP, Tdap and Td Vaccines ( 1 - Tdap) 02/24/1980 Pneumococcal Vaccine: 50+ Ye ars (1 of 1 - PCV) 2011 Zoster Vaccines (1 of 2) 2011 COVID-19 Vaccine ( - 2023-2 5 season) 2024 RSV Immunization or 60+ Years (1 - 1-dose 75+ series) 02/24/2036 Meningococcal B Vaccine Aged Out No l onger eligible based on patient's age to complete this topic Meningococcal Vaccine Aged Out No chinmay geovanna eligible based on patient's age to complete this topic RSV Immunizations Under 20 Months Aged Out No longer eligible based on patient's age to complete this topic
--- OUTSIDE RECORDS SUMMARY | 2025-04-24 10:47 | XMS_ITS | Clinical Summary ---
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 Gender Identity Not on file Sexual Orientation Not on file Plan of Treatment Health Maintenance Due Date Last Done Comments Hepatitis C Virus (HCV) Screening 1961 TdaP Immunization 1961 Cologuard 2006 Colonoscopy 2006 Colorectal Cancer Screening 2006 Immunochemical Fecal Occult Blood 2006 Pneumococcal Immunization (5 0+ years) (1 of 1 - PCV) 2011 Zoster Immunization (1 of 2) 2011 SARS-COV-2 Immunization (2 - season) 2024 09/27/2021 Influenza Immunization (#1) 2025 Respiratory Syncytial Virus (RSV) Immunization (Adult) (1 - 1-dose 75+ series) 02/24/2036 Hepatitis B Immunization Aged Out No longer eligible based on patient's age to complete this topic Human Papillomavirus (HPV) Immunization Aged Out No longer eligible b ased on patient's age to complete this topic Meningococcal Immunization (ACWY) Aged Out No longer eligible based on patient's age to complete this topic Rotavirus Immunization Aged Out No lo nger eligible based on patient's age to complete this topic
--- OUTSIDE RECORDS SUMMARY | 2025-04-24 10:47 | XMS_ITS | Clinical Summary ---
Author Organization [facility] [address] Address [address] [place] [id number] Care Team Providers Care Herb Grower Name Role Phone Tim Alanis MD Primary Care Provider [phone] Allergies No known active allergies Medications acyclovir (ZOVIRAX) 800 mg tablet 09/10/2017 Active PROAIR HFA 90 mcg/actuation inhaler 10/07/2017 Active doxycycline hyclate (VIBRAMYCIN) 50 mg capsule 10/02/2017 Active fluticasone (FLONASE) 50 mcg/actuation nasal spray 08/26/2017 Active busPIRone (BUSPAR) 5 mg tabletIndication s:Generalized Anxiety Disorder 07/18/2017 Ac tive ADVAIR DISKUS 250-50 mcg/dose diskus inhaler 09/23/2017 Acti ve valACYclovir (VALTREX) 1 gram tablet Take 1,000 mg by mouth 3 (three) times a day 10/29/2021 Active Active Problems Problem Noted Date Diagnosed Date Lentigo 03/03/2016 Actinic keratosis 03/31/2011 Benign neoplasm of skin of trunk 03/31/2011 Surgical follow-up care 01/14/2011 Knee pain 11/18/2010 Surgical History Surgery Date Site/Laterality Comments KNEE SURGERY knee replacement 6 years ago and 5 knee surgeries JOINT REPLACEMENT Medical History Medical History Date Comments Asthma Gout Social History Tobacco Use Types Packs/Day Years Used Date Smoking Tobacco: Never Smokeless Tobacco: Never Alcohol Use Standard Drinks/Week Comments Yes 0 (1 standard drink = 0.6 oz pur e alcohol) Personal Safety Answer Date Recorded Getting School Help Needed Not on file 11/19 Sex and Gender Information Value Date Recorded Sex Assigned at Not on file 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 Gender Identity Not on file Sexual Orientation Not on file Obstetrics History Last Filed Vital Signs Vital Sign Reading Time Taken Comments Blood Pressure 144/88 07/23/2022 4:46 PM WOOD LATHE OPERATOR Pulse 69 07/23/2022 4:46 PM WOOD LATHE OPERATOR Temperature - - Respiratory Rate - - Oxygen Saturation - - Inhaled Oxygen Concentration - - Weight 79.4 kg (175 lb) 07/23/2022 4:46 PM WOOD LATHE OPERATOR Height 170.2 cm (5' 7) 07/23/2022 4:46 PM WOOD LATHE OPERATOR Body Mass Index 27.41 07/23/2022 4:46 PM WOOD LATHE OPERATOR Plan of Treatment Health Maintenance Due Date Last Done Comments Colon Cancer Screening-Colonoscopy 1961 Depression Screening 1961 Hepatitis C Screening 1961 Prostate Cancer Screening-PSA 1961 DTaP/Tdap/Td Vaccine (1 - Tdap) 02/24/1972 Hepatitis B Screening 1979 Regular Well Visit/Exam 18-64 1979 Zoster Vaccine (1 of 2) 2011 Covid-19 Vaccine (3 - 2023-2 5 season) 2024 09/27/2021, 12/02/2020 Influenza Vaccine (#1) 2025 Pneumococcal vaccine <65 Aged Out No longer eligible based on patient's age to complete this topic Insurance [facility]PPO Address: [address] [place] [address] [facility] [employer] H[facility]/PPO Address: [address] [place] [address] Care Teams Herb Grower Relationship Specialty Start Date End Date Tim Alanis MD [address] [facility] [address] [place] [address] PCP - General Internal Medicine 07/23/22
== END 2025-04-24 09:57 | disposition home or self-care (01) ==
PROVIDERS: PCP Internal Medicine; Visit Provider Internal Medicine
DX: R05.9 Cough, unspecified (principal); R53.83 Other fatigue
CPT/HCPCS: 36415; 71046; 85025

== ENCOUNTER 2025-06-14 09:15 | Outpatient (CLI) | payer OTHER, SELFPAY ==
--- NOTE | 2025-06-14 12:24 | WPDPFTINT ---
PFT Procedure Performed PFT Procedure Performed Spirometry with Pre/Post Bronchodilator Plethysmography (Lung Vol) Diffusing Cap (DLCO) Flow Vol Loop PFT Interpretation This is a pulmonary function test with pre and post-bronchodilator spirometry, plethysmography and diffusing capacity. The test was performed and results interpreted in accordance with the 2019 and 2005 ATS/ERS Task Force guidelines respectively using the Global Lung Function Initiative-2012 reference equations. Patient demonstrated good effort and cooperation. Reproducibility criteria were met. The quality of the pre bronchodilator spirometry maneuver was Grade A and post bronchodilator spirometry maneuver was Grade A. Findings: Spirometry: There is decreased maximal expiratory airflow at low lung volumes. The contour the inspiratory flow tracing is normal. The pre bronchodilator FVC is 4.47 L, 108% predicted. The pre bronchodilator FEV1 is 2.93 L, 92% predicted. The pre bronchodilator FEV1: FVC ratio 65%. The post bronchodilator FVC is 4.47 L, representing no change. The post bronchodilator FEV1 is 3.13 L, representing a 7% increase. The post bronchodilator FEV1: FVC ratio is 70%. Plethysmography: The total lung capacity is 6.77 L, 102% predicted. The functional residual capacity is 3.20 L, 92% predicted. The residual volume is 2.29 L, 101% predicted. Diffusing capacity: The diffusing capacity unadjusted for hemoglobin and carboxyhemoglobin is 22.4, 85% predicted. The diffusing capacity adjusted for alveolar volume is 3.93, 94% predicted. Impression: The spirometry is normal without evidence of an obstructive abnormality. There is no significant improvement after inhaling a single dose of albuterol. The lung volumes are normal. The diffusing capacity is normal. There are no prior studies for comparison
== END 2025-06-14 09:16 | disposition home or self-care (01) ==
PROVIDERS: PCP Internal Medicine; Visit Provider Internal Medicine
DX: R05.2 Subacute cough (principal); R06.02 Shortness of breath; T78.40XA Allergy, unspecified, initial encounter; R06.2 Wheezing; Z91.09 Other allergy status, other than to drugs and biological substances
CPT/HCPCS: 94060; 94726; 94729

== ENCOUNTER 2025-06-20 15:16 | Outpatient (CLI) | payer OTHER, SELFPAY ==
--- NOTE | ~2025-06-20 | CT_ITS ---
EXAMINATION:CT chest high resolution wo mi DATE: 06/20/2025 15:35 INDICATION: Cough, unspecified. TECHNIQUE: Computed tomography (CT) of the chest was performed without intravenous contrast. Automated exposure control and iterative reconstruction technique were employed. The dose-length product (DLP) was 354.90 mGy-cm. COMPARISON: Chest CT 07/16/2022 FINDINGS: There is no bronchiectasis or honeycombing. There is a 6 mm nodule in right middle lobe without change, likely benign. There is a stable 4 mm nodule left lower lobe, likely benign. There is a 3 mm nodule in right upper lobe, likely benign. No pleural effusion. The heart size is normal. There are coronary artery calcifications. No pericardial effusion. There is mild thoracic spondylosis. There is a chronic compression fracture of T3. IMPRESSION: 1. No etiology for the patient's symptoms. Reviewed, dictated and finalized at location E.
== END 2025-06-20 15:17 | disposition home or self-care (01) ==
LOC: MICIMG 15:17
PROVIDERS: PCP Internal Medicine; Visit Provider Internal Medicine
DX: R05.9 Cough, unspecified (principal); R06.02 Shortness of breath; Z86.19 Personal history of other infectious and parasitic diseases
CPT/HCPCS: 71250